=== PATIENT | male | born 1950 | race Caucasian/White ===

== ENCOUNTER 2017-09-20 05:04 | Emergency (ER) | payer MEDICARE, BC ==
[2017-09-20 05:13] VITALS: BP 156/86
[2017-09-20] MEDS ORDERED: DEXAMETHASONE 10 MG/ML VIAL PO STA (05:25)
[2017-09-20] MEDS ORDERED: KETOROLAC 60 MG/2 ML VIAL IM STA (05:25)
[2017-09-20] MEDS ORDERED: ACETAMINOPHEN 500 MG TABLET PO STA (05:25)
[2017-09-20] MEDS ORDERED: oxyCODONE/ACET 5/325 Prepack 4 PO STA (05:28)
[2017-09-20] MEDS ORDERED: diazePAM 5 MG TABLET PO STA (05:28)
--- NOTE | 2017-09-20 05:36 | ED Physician Documentation ---
PD HPI LOWER EXT INJURY - Stated complaint Stated Complaint: R LEG PX - Chief complaint Chief Complaint: Ext Problem - History obtained from History obtained from: Patient - History of Present Illness PD HPI LOW EXT INJURY LOCATION: Right, Upper leg, Buttock Where injury occurred: Home Timing - onset: How many days ago (3) Timing - details: Waxing and waning Improved by: Immobilization Worsened by: Moving, Palpating Associated symptoms: No: Weakness, Numbness, Tingling, Swelling Contributing factors: No: Anticoagulated, Prior ortho surgery Recently seen: Clinic - Additional information Additional information: Patient is a 67 year old male with a history of sciatica who is presenting to the emergency department for right leg pain. Patient states for the last couple of days he has had pain that radiates from his right buttock down his right leg. Patient denies any trauma, fever or chills. patient went to the walk in clinic and x-rays were performed and were within normal limits. Review of Systems Constitutional: denies: Fever, Chills Eyes: denies: Decreased vision, Photophobia Ears: denies: Ear pain, Drainage/discharge Nose: denies: Rhinorrhea / runny nose, Congestion Throat: reports: Reviewed and negative Cardiac: reports: Reviewed and negative Respiratory: reports: Reviewed and negative GI: reports: Reviewed and negative : denies: Dysuria, Frequency, Hesitancy, Hematuria Skin: reports: Rash. denies: Lesions, Abrasion (s) Musculoskeletal: reports: Extremity pain. denies: Back pain Neurologic: reports: Numbness. denies: Generalized weakness, Focal weakness Immunocompromised: denies: Immunocompromised PD PAST MEDICAL HISTORY - Past Medical History Past Medical History: Yes Cardiovascular: High cholesterol Respiratory: None Neuro: None Endocrine/Autoimmune: None GI: None : Benign prostate hypertrophy HEENT: None Psych: None Musculoskeletal: Other Derm: Eczema - Past Surgical History Past Surgical History: Yes General: Cholecystectomy HEENT: Detached retina repair, Tonsil/Adenoidectomy - Present Medications Home Medications: Ambulatory Orders Medication Instructions Recorded Confirmed Aspirin [Aspir 81] 81 mg PO DAILY 05/25/13 03/08/16 [place]-3 Fatty Acids/Fish Oil [Fish 1 each PO DAILY 05/25/13 03/08/16 Oil 1,000 mg Capsule] Pravastatin Sodium [Pravachol] 40 mg PO DAILY 05/25/13 03/08/16 Tamsulosin [Flomax] 0.4 mg PO DAILY 05/25/13 03/08/16 Oxycodone HCl/Acetaminophen 1 - 2 each PO Q6H PRN #7 tablet 09/20/17 [Percocet 5-325 mg Tablet] - Allergies Allergies/Adverse Reactions: Allergies Allergy/AdvReac Type Severity Reaction Status Date / Time No Known Drug Allergies Allergy Verified 09/20/17 05:13 - Social History Does the pt smoke?: No Smoking Status: Never smoker Does the pt drink ETOH?: Yes Does the pt have substance abuse?: No - Immunizations Immunizations are current?: Yes - POLST Patient has POLST: No PD ED PE NORMAL - Vitals Vital signs reviewed: Yes - General General: Alert and oriented X 3 - HEENT HEENT: Atraumatic - Cardiac Cardiac: RRR - Respiratory Respiratory: No respiratory distress - Abdomen Abdomen: Non distended - Neuro Neuro: No motor deficit, No sensory deficit, Normal speech Eye Opening: Spontaneous PD ED PE EXPANDED - General General: Alert, In Pain - Back Back: CVA TTP right - Derm Derm: Rash (chronic rash on upper extremities and back, patient reports as unchanged) Results - Vitals Vitals: Vital Signs - 24 hr 09/20/17 05:11 Temperature 36.6 C Heart Rate 75 Respiratory 20 Rate Blood Pressure 156/86 H O2 Saturation 99 Oxygen O2 Source Room air PD MEDICAL DECISION MAKING - ED course Complexity details: reviewed old records, reviewed results, re-evaluated patient , considered differential, d/w patient ED course: Patient was seen and examined at bedside. Patient was in moderate distress but the pain was likely secondary to his sciatic nerve. Patient was treated with toradol and decadron. Patient was given a prepack of percocet and a valium to go home with since he was driving. No further inpatient work up was necessary at this time and patient was stable for discharge with outpatient follow up. Departure - Departure Disposition: 01 Home, Self Care Clinical Impression: Sciatica Condition: Good Instructions: ED Sciatica Follow-Up: Fabián Colin MD [Primary Care Provider] - Within 3 Days Prescriptions: Oxycodone HCl/Acetaminophen [Percocet 5-325 mg Tablet] 1 - 2 each PO Q6H PRN #7 tablet PRN Reason: pain Comments: Your symptoms today are likely secondary to sciatica. You should alternate between ice and heat, motrin and tylenol. You can try percocet for breakthrough pain. You can continue with your home muscle relaxers. You should follow up with your doctor on friday if your symptoms don't improve. You may return to the emergency department at any time for new, worsening or uncontrollable symptoms.
[2017-09-20] MEDS ORDERED: KETOROLAC 30 MG/ML VIAL ONE (05:41)
[2017-09-20] MEDS ORDERED: CHERRY SYRUP 10 ML UDC PO ONE (05:41)
== END 2017-09-20 05:53 | disposition home or self-care (01) ==
LOC: ED 05:04
DX: M54.31 Sciatica, right side (principal); R21 Rash and other nonspecific skin eruption; Z79.82 Long term (current) use of aspirin
CPT/HCPCS: 96372; 99283; A9270

== ENCOUNTER 2017-10-01 05:19 | Outpatient (CLI) | payer MEDICARE, BC | END 2017-10-01 05:20 | disposition critical access hospital (66) | LOC: EMS 05:19 | PROVIDERS: ATTEND Surgery | DX: M54.30 Sciatica, unspecified side (principal) | CPT/HCPCS: A0425; A0429 ==

== ENCOUNTER 2017-10-01 05:42 | Emergency (ER) | payer MEDICARE, BC ==
[2017-10-01] MEDS ORDERED: HYDROmorphone 1 MG/ML CARPUJECT IM STA (05:45)
[2017-10-01] MEDS ORDERED: DEXAMETHASONE 10 MG/ML VIAL PO STA (05:45)
[2017-10-01] MEDS ORDERED: KETOROLAC 60 MG/2 ML VIAL IM STA (05:45)
[2017-10-01] MEDS ORDERED: diazePAM 5 MG TABLET PO STA (05:46)
--- NOTE | 2017-10-01 05:49 | ED Physician Documentation ---
PD HPI LOWER EXT INJURY - Stated complaint Stated Complaint: SCIATIC PAIN - Chief complaint Chief Complaint: Back Pain - History obtained from History obtained from: Patient, EMS - History of Present Illness PD HPI LOW EXT INJURY LOCATION: Right, Upper leg, Buttock Where injury occurred: Home Timing - onset: Chronic Timing - details: Intermittant Worsened by: Moving, Palpating Similar symptoms before: Work up / diagnostics, Treatment Recently seen: Emergency Dept - Additional information Additional information: Patient is a 67 year old male with a history of sciatica who is presenting to the emergency department for right leg pain. patient states that he had seen his chiropractor which had given him some relief but his pain came back over the last few days. patient states that he did not want to take the percocet since he had been constipated. Patient has been under a lot of stress since his is in hospice. Patient denies any new trauma, fever, chills or neurological deficits. Review of Systems Ten Systems: 10 systems reviewed and negative Constitutional: denies: Fever, Chills Musculoskeletal: reports: Extremity pain. denies: Extremity swelling Neurologic: denies: Generalized weakness, Focal weakness, Numbness PD PAST MEDICAL HISTORY - Past Medical History Cardiovascular: High cholesterol Respiratory: None Neuro: None Endocrine/Autoimmune: None GI: None : Benign prostate hypertrophy HEENT: None Psych: None Musculoskeletal: Other Derm: Eczema - Past Surgical History Past Surgical History: Yes General: Cholecystectomy HEENT: Detached retina repair, Tonsil/Adenoidectomy - Present Medications Home Medications: Ambulatory Orders Medication Instructions Recorded Confirmed Aspirin [Aspir 81] 81 mg PO DAILY 05/25/13 03/08/16 [place]-3 Fatty Acids/Fish Oil [Fish 1 each PO DAILY 05/25/13 03/08/16 Oil 1,000 mg Capsule] Pravastatin Sodium [Pravachol] 40 mg PO DAILY 05/25/13 03/08/16 Tamsulosin [Flomax] 0.4 mg PO DAILY 05/25/13 03/08/16 Oxycodone HCl/Acetaminophen 1 - 2 each PO Q6H PRN #7 tablet 09/20/17 [Percocet 5-325 mg Tablet] Lidocaine Patch 5% [Lidoderm Patch] 1 each TOP DAILY #20 patch 10/01/17 diazePAM [Valium] 5 - 10 mg PO TID PRN #15 tablet 10/01/17 - Allergies Allergies/Adverse Reactions: Allergies Allergy/AdvReac Type Severity Reaction Status Date / Time No Known Drug Allergies Allergy Verified 09/20/17 05:13 - Social History Does the pt smoke?: No Smoking Status: Never smoker Does the pt drink ETOH?: Yes Does the pt have substance abuse?: No - Immunizations Immunizations are current?: Yes - POLST Patient has POLST: No PD ED PE NORMAL - Vitals Vital signs reviewed: Yes - General General: Alert and oriented X 3 - HEENT HEENT: Atraumatic - Cardiac Cardiac: RRR - Respiratory Respiratory: No respiratory distress - Abdomen Abdomen: Soft - Neuro Neuro: Alert and oriented X 3, No sensory deficit Eye Opening: Spontaneous Motor: Obeys Commands Verbal: Oriented GCS Score: 15 PD ED PE EXPANDED - General General: Alert, In Pain - Derm Derm: Rash - Extremities Extremities: Right hip (soft tissue tenderness over right gluteal region down right leg), Right thigh Results - Vitals Vitals: Vital Signs - 24 hr 10/01/17 05:46 Temperature 36.5 C Heart Rate 73 Respiratory 20 Rate Blood Pressure 158/61 H O2 Saturation 96 Oxygen O2 Source Room air PD MEDICAL DECISION MAKING - ED course Complexity details: reviewed old records, reviewed results, re-evaluated patient , considered differential, d/w patient ED course: Patient was seen and examined at bedside. Patient was treated with toradol, decadron and IM dilaudid. Patient's pain improved down to a 5. Patient was then treated with a trigger point injection and a lidoderm patch. Patient had even more relief and was able to tolerate his stretches. patient had no neurological deficit. Patient required no further work up and was stable for discharge with outpatient follow up. Departure - Departure Disposition: 01 Home, Self Care Clinical Impression: Sciatica Condition: Good Instructions: ED Sciatica Follow-Up: Fabián Colin MD [Primary Care Provider] - Prescriptions: diazePAM [Valium] 5 - 10 mg PO TID PRN #15 tablet PRN Reason: Spasms Lidocaine Patch 5% [Lidoderm Patch] 1 each TOP DAILY #20 patch Comments: Your symptoms today are secondary to sciatica. Your mainstay of therapy will be anti-inflammatory medicine (ibuprofen), and stretching/physical therapy. You can also try valium for muscle spasm and lidoderm patch for point specific pain. You should continue with the stretches that your chiropractor had you do and follow up with your physical therapist. You may return to the emergency department at any time for new, worsening or uncontrollable symptoms.
[2017-10-01] MEDS ORDERED: CHERRY SYRUP 10 ML UDC PO ONE (06:03)
[2017-10-01] MEDS ORDERED: BUPIVACAINE 0.5% PF 30 ML VIAL SUBQ STA (06:45)
[2017-10-01] MEDS ORDERED: LIDOCAINE PATCH 5% TOP STA (06:45)
[2017-10-01] MEDS ORDERED: LIDOCAINE 2% 10 ML MDV SUBQ STA (06:58)
[2017-10-01] MEDS ORDERED: LIDOCAINE 2% 10 ML MDV ONE ×2 (06:58)
[2017-10-01 08:00] VITALS: BP 160/87
== END 2017-10-01 08:42 | disposition home or self-care (01) ==
LOC: EDUNIT# → ED 05:42
DX: M54.31 Sciatica, right side (principal); M79.1 Myalgia
CPT/HCPCS: 20552; 96372; 99283; 99284; A9270; J1170

== ENCOUNTER 2018-03-15 18:46 | Outpatient (CLI) | payer MEDICARE, BC | END 2018-03-15 18:47 | disposition critical access hospital (66) | LOC: EMS 18:46 | PROVIDERS: ATTEND Surgery | DX: R10.9 Unspecified abdominal pain (principal); R11.0 Nausea | CPT/HCPCS: A0425; A0427 ==

== ENCOUNTER 2018-03-15 19:10 | Emergency (ER) | payer MEDICARE, BC ==
[2018-03-15] MEDS ORDERED: LORazepam 2 MG/ML VIAL IVP STA (19:41)
[2018-03-15 19:45] LABS: BASOPHILS # (AUTO) 0.1 10^3/uL (0.0-0.1); BASOPHILS % (AUTO) 1.5 %; EOSINOPHILS # (AUTO) 0.2 10^3/uL (0.0-0.7); EOSINOPHILS % (AUTO) 1.7 %; HGB - HEMOGLOBIN 16.3 g/dL (14.0-18.0); LYMPHOCYTES # (AUTO) 2.4 10^3/uL (1.5-3.5); LYMPHOCYTES % (AUTO) 26.4 %; MEAN CORPUSCULAR HEMOGLOBIN 29.1 pg (27.0-31.0); MEAN CORPUSCULAR HGB CONC 33.9 g/dL (32.0-36.0); MEAN PLATELET VOLUME 7.3 fL (7.4-11.4); MONOCYTES # (AUTO) 0.7 10^3/uL (0.0-1.0); MONOCYTES % (AUTO) 7.3 %; NEUTROPHILS # (AUTO) 5.7 10^3/uL (1.5-6.6); NEUTROPHILS % (AUTO) 63.1 %; PLT - PLATELET COUNT 285 10^3/uL (130-450); RED BLOOD COUNT 5.61 10^6/uL (4.70-6.10); RED CELL DISTRIBUTION WIDTH 13.8 % (12.0-15.0); WHITE BLOOD COUNT 9.1 x10^3/uL (4.8-10.8)
--- NOTE | 2018-03-15 19:46 | ED Physician Documentation ---
PD HPI ABD PAIN - Stated complaint Stated Complaint: ABD PAIN - Chief complaint Chief Complaint: Abd Pain - History obtained from History obtained from: Patient, EMS - History of Present Illness Timing - onset: How many days ago (3) Timing - duration: Days (3) Timing - details: Gradual onset Pain level max: 10 Pain level now: 10 Quality: Cramping, Aching, Pain Location: All over / everywhere Associated symptoms: No: Fever, Nausea, Vomiting, Diarrhea, Constipation Similar symptoms before: Has not had sx before Recently seen: Not recently seen - Additional information Additional information: Patient is a 67 year old male who presents to the emergency room with severe abdominal pain. States this has been going on for the past 3 days but has increasingly gotten worse in the past hour. States he recently lost his 3 months ago and he had pain in his stomach that was very similar to this. States it feels very tight and he is very worked up. Pt is tearful while giving the history. Review of Systems Ten Systems: 10 systems reviewed and negative Constitutional: denies: Fever, Chills Nose: denies: Rhinorrhea / runny nose Throat: denies: Sore throat GI: reports: Nausea, Vomiting. denies: Abdominal Pain, Constipation, Diarrhea Skin: denies: Rash Musculoskeletal: denies: Neck pain, Back pain, Extremity pain Psychiatric: reports: Anxiety. denies: Suicidal PD PAST MEDICAL HISTORY - Past Medical History Past Medical History: Yes Cardiovascular: High cholesterol Respiratory: None Endocrine/Autoimmune: None GI: None : Benign prostate hypertrophy HEENT: None Psych: None Musculoskeletal: Other Derm: Eczema - Past Surgical History Past Surgical History: Yes General: Cholecystectomy HEENT: Detached retina repair, Tonsil/Adenoidectomy - Present Medications Home Medications: Ambulatory Orders Medication Instructions Recorded Confirmed Aspirin [Aspir 81] 81 mg PO DAILY 05/25/13 03/08/16 [place]-3 Fatty Acids/Fish Oil [Fish 1 each PO DAILY 05/25/13 03/08/16 Oil 1,000 mg Capsule] Pravastatin Sodium [Pravachol] 40 mg PO DAILY 05/25/13 03/08/16 Tamsulosin [Flomax] 0.4 mg PO DAILY 05/25/13 03/08/16 Oxycodone HCl/Acetaminophen 1 - 2 each PO Q6H PRN #7 tablet 09/20/17 [Percocet 5-325 mg Tablet] Lidocaine Patch 5% [Lidoderm Patch] 1 each TOP DAILY #20 patch 10/01/17 diazePAM [Valium] 5 - 10 mg PO TID PRN #15 tablet 10/01/17 LORazepam [Ativan] 0.5 - 1 mg PO Q6H PRN #10 tablet 03/15/18 - Allergies Allergies/Adverse Reactions: Allergies Allergy/AdvReac Type Severity Reaction Status Date / Time No Known Drug Allergies Allergy Verified 09/20/17 05:13 - Living Situation Living Arrangement: reports: At home - Social History Does the pt smoke?: No Smoking Status: Never smoker Does the pt drink ETOH?: Yes Does the pt have substance abuse?: No - Family History Family history: reports: Non contributory - Immunizations Immunizations are current?: Yes - POLST Patient has POLST: No PD ED PE NORMAL - Vitals Vital signs reviewed: Yes - General General: Alert and oriented X 3, Well developed/nourished - HEENT HEENT: Atraumatic, PERRL, Moist mucous membranes - Neck Neck: Supple, no meningeal sign - Cardiac Cardiac: RRR - Respiratory Respiratory: No respiratory distress, Clear bilaterally - Abdomen Abdomen: Soft, Other (Diffusely tender all over. no peritoneal signs) - Derm Derm: Warm and dry, No rash - Extremities Extremities: No edema, No calf tenderness / cord - Neuro Neuro: Alert and oriented X 3 - Psych Psych: Other (Pt appears very distressed and tearful) Results - Vitals Vitals: Vital Signs - 24 hr 03/15/18 03/15/18 03/15/18 19:13 20:00 21:02 Temperature 36.1 C L 36.6 C 36.6 C Heart Rate 79 57 L 67 Respiratory 16 16 14 Rate Blood Pressure 203/108 H 145/77 H 146/79 H O2 Saturation 97 96 97 Oxygen O2 Source Room air - Labs Labs: Laboratory Tests 03/15/18 03/15/18 19:36 19:36 WBC 9.1 RBC 5.61 Hgb 16.3 Hct 48.3 MCV 86.0 MCH 29.1 MCHC 33.9 RDW 13.8 Plt Count 285 MPV 7.3 L Neut # (Auto) 5.7 Lymph # (Auto) 2.4 [place] # (Auto) 0.7 Eos # (Auto) 0.2 Baso # (Auto) 0.1 Absolute Nucleated RBC 0.00 Nucleated RBC % 0.0 Sodium 135 Potassium 3.7 Chloride 105 Carbon Dioxide 22 Anion Gap 8.0 BUN 16 Creatinine 0.8 Estimated GFR (MDRD) 96 Glucose 106 H Calcium 9.9 Total Bilirubin 0.7 AST 24 ALT 25 Alkaline Phosphatase 62 Total Protein 7.2 Albumin 4.1 Globulin 3.1 Albumin/Globulin Ratio 1.3 Lipase 27 PD MEDICAL DECISION MAKING - ED course Complexity details: reviewed results, re-evaluated patient, considered diff erential, d/w patient ED course: Patient is a 67-year-old male who presents to the emergency department with diffuse abdominal pain. Appears to be anxiety related. Given Ativan and symptoms resolved. No acute laboratory findings. Will prescribe Ativan for home and follow-up closely with his PCP. Abdomen soft, nontender nondistended on serial exam. He is seeing a grief counselor. Patient counseled regarding signs and symptoms for which I believe and urgent re-evaluation would be necessary. Patient with good understanding of and agreement to plan and is comfortable going home at this time This document was made in part using voice recognition software. While efforts are made to proofread this document, sound alike and grammatical errors may occur. - Sepsis Event Vital Signs: Vital Signs - 24 hr 03/15/18 03/15/18 03/15/18 19:13 20:00 21:02 Temperature 36.1 C L 36.6 C 36.6 C Heart Rate 79 57 L 67 Respiratory 16 16 14 Rate Blood Pressure 203/108 H 145/77 H 146/79 H O2 Saturation 97 96 97 Oxygen O2 Source Room air Departure - Departure Disposition: 01 Home, Self Care Clinical Impression: Anxiety Abdominal pain Qualifiers: Abdominal location: generalized Qualified Code(s): R10.84 - Generalized abdominal pain Condition: Good Instructions: ED Abdominal Pain Unkn Cause, ED Panic Attack Follow-Up: Fabián Colin MD [Primary Care Provider] - Within 1 week Prescriptions: LORazepam [Ativan] 0.5 - 1 mg PO Q6H PRN #10 tablet PRN Reason: Anxiety Comments: Use the Ativan as needed for anxiety. Return if you worsen. Follow-up with your doctor for further evaluation and care. Your laboratory testing is normal tonight Discharge Date/Time: 03/15/18 21:09
[2018-03-15 19:54] LABS: ALBUMIN 4.1 g/dL (3.2-5.5); ALBUMIN/GLOBULIN RATIO 1.3 (1.0-2.2); BILIRUBIN,TOTAL 0.7 mg/dL (0.2-1.0); CALCIUM 9.9 mg/dL (8.5-10.3); CREATININE 0.8 mg/dL (0.6-1.2); TOTAL PROTEIN 7.2 g/dL (6.7-8.2)
[2018-03-15 21:04] VITALS: BP 146/79
== END 2018-03-15 21:09 | disposition home or self-care (01) ==
LOC: EDUNIT# → ED 19:10
DX: F41.9 Anxiety disorder, unspecified (principal); R10.84 Generalized abdominal pain
CPT/HCPCS: 36415; 80053; 83690; 85025; 96374; 99283; J2060

== ENCOUNTER 2018-11-07 05:57 | Emergency (ER) | payer MEDICARE, BC ==
[2018-11-07 06:03] VITALS: BP 153/81
--- NOTE | 2018-11-07 06:25 | ED Physician Documentation ---
History of Present Illness - Stated complaint Stated Complaint: R FOOT PX - Chief complaint Chief Complaint: Ext Problem - History obtained from History obtained from: Patient - History of Present Illness Timing: Enter time (02:30), Today Pain level now: 7 Improved by: rest, dorsiflexion Worsened by: weight-bearing, position, palpation - Additonal information Additional information: c/o burning pain right foot, limited to proximal 1st metatarsal. Onset 2:30 AM when walking to bathroom at home. denies injury. He says he has had similar, milder, self-limited discomfort in the past but never this severe nor persistent. Review of Systems Constitutional: denies: Fever Skin: denies: Rash Musculoskeletal: reports: Extremity pain, Pain with weight bearing. denies: Back pain, Joint pain, Extremity swelling, Joint swelling Neurologic: denies: Focal weakness, Numbness PD PAST MEDICAL HISTORY - Past Medical History Cardiovascular: High cholesterol Respiratory: None Endocrine/Autoimmune: None GI: None : Benign prostate hypertrophy HEENT: None Psych: None Musculoskeletal: Other Derm: Eczema - Past Surgical History Past Surgical History: Yes General: Cholecystectomy HEENT: Detached retina repair, Tonsil/Adenoidectomy - Present Medications Home Medications: Ambulatory Orders Medication Instructions Recorded Confirmed Aspirin [Aspir 81] 81 mg PO DAILY 05/25/13 11/07/18 [place]-3 Fatty Acids/Fish Oil [Fish 1 each PO DAILY 05/25/13 03/08/16 Oil 1,000 mg Capsule] Pravastatin Sodium [Pravachol] 40 mg PO DAILY 05/25/13 11/07/18 Tamsulosin [Flomax] 0.4 mg PO DAILY 05/25/13 11/07/18 HYDROcod/ACETAM 5/325 [[place] 5/325] 1 - 2 ea PO Q6H PRN #15 tablet 11/07/18 - Allergies Allergies/Adverse Reactions: Allergies Allergy/AdvReac Type Severity Reaction Status Date / Time No Known Drug Allergies Allergy Verified 09/20/17 05:13 - Social History Does the pt smoke?: No Smoking Status: Never smoker Does the pt drink ETOH?: Yes Does the pt have substance abuse?: No - Immunizations Immunizations are current?: Yes - POLST Patient has POLST: No PD ED PE NORMAL - Vitals Vital signs reviewed: Yes - General General: Alert and oriented X 3, No acute distress, Well developed/nourished - Derm Derm: Normal color, Warm and dry, No rash - Extremities Extremities: No deformity, Normal ROM s pain, No edema, No calf tenderness / cord - Neuro Neuro: No motor deficit, No sensory deficit PD ED PE EXPANDED - Extremities Feet visual: 1 - tenderness (TTP limited to proximal 1st metatarsal, lateral aspect. no erythema, swelling, rash. brisk capillary refill in toes, normal DP pulse. no joint tenderness (ankle, 1st MTP joint)) Results - Vitals Vitals: Vital Signs - 24 hr 11/07/18 05:59 Temperature 36.7 C Heart Rate 70 Respiratory 18 Rate Blood Pressure 153/81 H O2 Saturation 98 Oxygen O2 Source Room air PD MEDICAL DECISION MAKING - ED course Complexity details: considered differential, d/w patient ED course: HPI and exam do not suggest emergent process such as cellulitis, gout, injury, DVT, limb ischemia. Emergent testing not indicated at this time, but patient encouraged to return if worse or new signs/symptoms develop, f/u with PMD, and given ibuprofen in ED and vicodin rx with take-home for symptomatic control Departure - Departure Disposition: 01 Home, Self Care Clinical Impression: Pain of lower extremity Condition: Good Instructions: ED Paraesthesias Follow-Up: Fabián Colin MD [Primary Care Provider] - Prescriptions: HYDROcod/ACETAM 5/325 [[place] 5/325] 1 - 2 ea PO Q6H PRN #15 tablet PRN Reason: Pain Discharge Date/Time: 11/07/18 07:10
[2018-11-07] MEDS ORDERED: IBUPROFEN 600 MG TABLET PO STA (06:47)
[2018-11-07] MEDS ORDERED: HYDROcod/ACET 5/325 Prepack 4 PO STA (06:47)
== END 2018-11-07 07:10 | disposition home or self-care (01) ==
LOC: ED 05:57
DX: M79.671 Pain in right foot (principal); Z79.82 Long term (current) use of aspirin
CPT/HCPCS: 99283; A9270

== ENCOUNTER 2019-01-06 08:00 | Outpatient (CLI) | payer MEDICARE, BC ==
[2019-01-06 18:39] LABS: BASOPHILS # (AUTO) 0.1 10^3/uL (0.0-0.1); BASOPHILS % (AUTO) 0.7 %; EOSINOPHILS # (AUTO) 0.2 10^3/uL (0.0-0.7); EOSINOPHILS % (AUTO) 2.2 %; HGB - HEMOGLOBIN 15.8 g/dL (14.0-18.0); LYMPHOCYTES # (AUTO) 2.2 10^3/uL (1.5-3.5); LYMPHOCYTES % (AUTO) 31.9 %; MEAN CORPUSCULAR HEMOGLOBIN 28.6 pg (27.0-31.0); MEAN CORPUSCULAR VOLUME 92.4 fL (80.0-94.0); MEAN PLATELET VOLUME 9.5 fL (7.4-11.4); MONOCYTES # (AUTO) 0.6 10^3/uL (0.0-1.0); MONOCYTES % (AUTO) 9.3 %; NEUTROPHILS # (AUTO) 3.8 10^3/uL (1.5-6.6); NEUTROPHILS % (AUTO) 55.5 %; PLT - PLATELET COUNT 296 10^3/uL (130-450); RED BLOOD COUNT 5.52 10^6/uL (4.70-6.10); RED CELL DISTRIBUTION WIDTH 13.8 % (12.0-15.0); WHITE BLOOD COUNT 6.8 x10^3/uL (4.8-10.8)
[2019-01-06 18:49] LABS: HB2 TOTAL 16.4 g/dL; HEMOGLOBIN A1C 0.7 g/dL; HEMOGLOBIN A1C % 6.1 % (4.6-6.2)
[2019-01-06 18:59] LABS: ALBUMIN/GLOBULIN RATIO 1.3 (1.0-2.2); ALKALINE PHOSPHATASE 63 IU/L (42-121); ALT ALANINE AMINOTRANSFERASE 27 IU/L (10-60); AST ASPARTATE AMINOTRANSFERASE 25 IU/L (10-42); BILIRUBIN,TOTAL 0.9 mg/dL (0.2-1.0); BUN - BLOOD UREA NITROGEN 20 mg/dL (6-20); CALCIUM 8.9 mg/dL (8.5-10.3); CARBON DIOXIDE - CO2 23 mmol/L (21-32); CHLORIDE 109 mmol/L (101-111); CHOL/HDL RATIO 3.5 (<5.0); CHOLESTEROL 160 mg/dL; CREATININE 0.8 mg/dL (0.6-1.2); GFR - MDRD 96 (>89); GLUCOSE 96 mg/dL (70-100); HDL CHOLESTEROL 46 mg/dL; LDL CHOLESTEROL,CALCULATED 96 mg/dL; LDL/HDL RATIO 2.1 (<3.6); SODIUM 141 mmol/L (135-145); TOTAL PROTEIN 7.2 g/dL (6.7-8.2); VLDL CHOLESTEROL 18 mg/dL
== END 2019-01-06 23:59 | disposition home or self-care (01) ==
LOC: LAB.WCP 08:00
PROVIDERS: ATTEND Family Medicine
DX: R73.01 Impaired fasting glucose (principal); E78.5 Hyperlipidemia, unspecified; Z12.5 Encounter for screening for malignant neoplasm of prostate; R03.0 Elevated blood-pressure reading, without diagnosis of hypertension
CPT/HCPCS: 36415; 80061; 83036; G0103; 80053; 83721; 84153; 84443; 85025

== ENCOUNTER 2019-04-05 12:16 | Emergency (ER) | payer MEDICARE, BC ==
[2019-04-05] MEDS ORDERED: LORazepam 2 MG/ML VIAL IVP STA (14:26)
--- NOTE | 2019-04-05 14:26 | ED Physician Documentation ---
PD HPI MHE - Stated complaint Stated Complaint: ANXIETY - Chief complaint Chief Complaint: MHE - History obtained from History obtained from: Patient - History of Present Illness Primary symptom: Anxiety. No: Suicidal ideation, Suicide attempt, Self harm - cut, Self harm - OD, Self harm - other, Homicidal ideation, Psychosis, Aggressive behavior Timing - onset: How many years ago (1.5) Contributing factors: No: Substance abuse - ETOH, Substance abuse - drugs Similar symptoms before: Diagnosis Recently seen: Clinic - Additional information Additional information: Is a 68-year-old man who presents with complaints of "major stress and anxiety. His about a year and a half ago and since then he has been having issues with anxiety. They were very close and with each other's support. He was with her through her cancer. He is still seeing the bereavement counselor through the hospice program every third week but he did not go 2 weeks ago just because he was feeling and started to feel anxious. He says when he gets really worked up his stomach tightens he feels like he is just in a screen. He went to his primary care provider put him on sertraline but it made him nauseous so he quit taking it after only 2 days. He does not have any appetite. He was also been prescribed lorazepam and when he takes it he does feel a little bit calmer however he is waking up in the morning with his intense stomach pain. If he takes a lorazepam it eases off. He has had diarrhea and has noted a small speck of blood on the tissue. This is been a problem in the past and he has had some hemorrhoids. He has had a colonoscopy but he cannot remember when the last one was. He is nauseous but no vomiting. Denies any dysuria or blood in the urine. He has no pain radiating down his legs or in his back. He does feel like he has heart palpitations off and on but is not short of breath and his head is just "swirling". Is a history of prostate cancer with radiation seeds placed in 2009 and is status post cholecystectomy. Denies history of MS. He has chronic eczema. Review of Systems Constitutional: denies: Fever Ears: denies: Ear pain Nose: denies: Congestion Throat: denies: Sore throat Cardiac: reports: Palpitations. denies: Chest pain / pressure, Pedal edema Respiratory: denies: Dyspnea, Cough GI: reports: Abdominal Pain, Nausea, Diarrhea. denies: Vomiting : reports: Frequency. denies: Dysuria Skin: reports: Rash Musculoskeletal: denies: Back pain Neurologic: denies: Numbness, Syncope PD PAST MEDICAL HISTORY - Past Medical History Past Medical History: Yes Cardiovascular: High cholesterol Respiratory: None Neuro: None Endocrine/Autoimmune: None GI: None : Benign prostate hypertrophy HEENT: None Psych: Depression, Anxiety Musculoskeletal: Other Derm: Eczema - Past Surgical History Past Surgical History: Yes General: Cholecystectomy HEENT: Detached retina repair, Tonsil/Adenoidectomy - Present Medications Home Medications: Ambulatory Orders Medication Instructions Recorded Confirmed Aspirin [Aspir 81] 81 mg PO DAILY 05/25/13 11/07/18 [place]-3 Fatty Acids/Fish Oil [Fish 1 each PO DAILY 05/25/13 03/08/16 Oil 1,000 mg Capsule] Pravastatin Sodium [Pravachol] 40 mg PO DAILY 05/25/13 11/07/18 Tamsulosin [Flomax] 0.4 mg PO DAILY 05/25/13 11/07/18 HYDROcod/ACETAM 5/325 [[place] 5/325] 1 - 2 ea PO Q6H PRN #15 tablet 11/07/18 - Allergies Allergies/Adverse Reactions: Allergies Allergy/AdvReac Type Severity Reaction Status Date / Time No Known Drug Allergies Allergy Verified 04/05/19 12:36 - Social History Does the pt smoke?: No Smoking Status: Never smoker Does the pt drink ETOH?: Yes Does the pt have substance abuse?: No - Immunizations Immunizations are current?: Yes - POLST Patient has POLST: No PD ED PE NORMAL - Vitals Vital signs reviewed: Yes - General General: Alert and oriented X 3, Well developed/nourished, Other (He is quite anxious sometimes reach up and clutch at his hair and occasionally just departure clerk his hands into fists just shake them over his abdomen.) - HEENT HEENT: Atraumatic, PERRL, EOMI, Moist mucous membranes, Pharynx benign - Neck Neck: No adenopathy, Thyroid normal - Cardiac Cardiac: RRR, No murmur, No rub, Strong equal pulses - Respiratory Respiratory: No respiratory distress, Clear bilaterally - Abdomen Abdomen: Normal bowel sounds, Soft, Non tender, Non distended, No organomegaly - Derm Derm: Normal color, Warm and dry, Other (Diffuse erythematous dry patches covering his trunk arms and legs) - Extremities Extremities: No deformity, No edema - Neuro Neuro: Alert and oriented X 3, functional mental disability teacher 2-12 intact, No motor deficit, No sensory deficit, Normal speech Results - Vitals Vitals: Vital Signs - 24 hr 04/05/19 04/05/19 12:20 18:38 Temperature 36.9 C Heart Rate 73 76 Respiratory 18 13 Rate Blood Pressure 163/104 H 126/95 H O2 Saturation 98 97 Oxygen O2 Source Room air - Labs Labs: Laboratory Tests 04/05/19 04/05/19 04/05/19 14:35 14:35 14:35 WBC 9.6 RBC 5.73 Hgb 16.6 Hct 50.8 MCV 88.7 MCH 29.0 MCHC 32.7 RDW 13.7 Plt Count 283 MPV 9.1 Neut # (Auto) 6.7 H Lymph # (Auto) 2.1 [place] # (Auto) 0.7 Eos # (Auto) 0.1 Baso # (Auto) 0.0 Absolute Nucleated RBC 0.00 Nucleated RBC % 0.0 Sodium 138 Potassium 3.7 Chloride 104 Carbon Dioxide 22 Anion Gap 12.0 BUN 19 Creatinine 1.0 Estimated GFR (MDRD) 74 L Glucose 106 H Calcium 9.5 Phosphorus 2.7 Magnesium 2.1 Total Bilirubin 0.9 AST 19 ALT 23 Alkaline Phosphatase 67 Total Protein 7.0 Albumin 3.9 Globulin 3.1 Albumin/Globulin Ratio 1.3 Lipase 29 TSH 3.29 Urine Color Urine Clarity Urine pH Ur Specific [place] Urine Protein Urine Glucose (UA) Urine Ketones Urine Occult Blood Urine Nitrite Urine Bilirubin Urine Urobilinogen Ur Leukocyte Esterase Ur Microscopic Review Urine Culture Comments Urine Opiates Screen Ur Oxycodone Screen Urine Methadone Screen Ur Propoxyphene Screen Ur Barbiturates Screen Ur Tricyclics Screen Ur Phencyclidine Scrn Ur Amphetamine Screen U Methamphetamines Scrn U Benzodiazepines Scrn Urine Cocaine Screen U Cannabinoids Screen Ethyl Alcohol < 5.0 04/05/19 14:40 WBC RBC Hgb Hct MCV MCH MCHC RDW Plt Count MPV Neut # (Auto) Lymph # (Auto) [place] # (Auto) Eos # (Auto) Baso # (Auto) Absolute Nucleated RBC Nucleated RBC % Sodium Potassium Chloride Carbon Dioxide Anion Gap BUN Creatinine Estimated GFR (MDRD) Glucose Calcium Phosphorus Magnesium Total Bilirubin AST ALT Alkaline Phosphatase Total Protein Albumin Globulin Albumin/Globulin Ratio Lipase TSH Urine Color YELLOW Urine Clarity CLEAR Urine pH 8.5 H Ur Specific [place] 1.010 Urine Protein NEGATIVE Urine Glucose (UA) NEGATIVE Urine Ketones NEGATIVE Urine Occult Blood NEGATIVE Urine Nitrite NEGATIVE Urine Bilirubin NEGATIVE Urine Urobilinogen 0.2 (NORMAL) Ur Leukocyte Esterase NEGATIVE Ur Microscopic Review NOT INDICATED Urine Culture Comments NOT INDICATED Urine Opiates Screen NEGATIVE Ur Oxycodone Screen NEGATIVE Urine Methadone Screen NEGATIVE Ur Propoxyphene Screen NEGATIVE Ur Barbiturates Screen NEGATIVE Ur Tricyclics Screen NEGATIVE Ur Phencyclidine Scrn NEGATIVE Ur Amphetamine Screen NEGATIVE U Methamphetamines Scrn NEGATIVE U Benzodiazepines Scrn POSITIVE H Urine Cocaine Screen NEGATIVE U Cannabinoids Screen NEGATIVE Ethyl Alcohol PD MEDICAL DECISION MAKING - ED course Complexity details: reviewed results, re-evaluated patient, d/w patient ED course: Patient's labs were normal and he was feeling better after 1 mg of Ativan. In fact, he says he was able to breathe himself down before he even got the Ativan. We discussed counselling and he was open to more counselling than just the bereavement counselling and he spent some time talking with our Machine Heel Sprayer and they have outlined a plan. he feels comfortable with discharge. Follow-up with PMd for further medication management as needed. Departure - Departure Disposition: 01 Home, Self Care Clinical Impression: Anxiety attack Condition: Good Instructions: ED Stress React Follow-Up: Fabián Colin MD [Primary Care Provider] - Comments: Continue your breathing exercises. Follow-up with your counsellor and further plan as outlined with the social media job titles. Discharge Date/Time: 04/05/19 18:48
[2019-04-05 14:43] LABS: BASOPHILS % (AUTO) 0.4 %; EOSINOPHILS # (AUTO) 0.1 10^3/uL (0.0-0.7); EOSINOPHILS % (AUTO) 0.7 %; HGB - HEMOGLOBIN 16.6 g/dL (14.0-18.0); LYMPHOCYTES # (AUTO) 2.1 10^3/uL (1.5-3.5); LYMPHOCYTES % (AUTO) 21.7 %; MEAN CORPUSCULAR HGB CONC 32.7 g/dL (32.0-36.0); MEAN CORPUSCULAR VOLUME 88.7 fL (80.0-94.0); MEAN PLATELET VOLUME 9.1 fL (7.4-11.4); MONOCYTES # (AUTO) 0.7 10^3/uL (0.0-1.0); MONOCYTES % (AUTO) 7.6 %; NEUTROPHILS # (AUTO) 6.7 10^3/uL (1.5-6.6); PLT - PLATELET COUNT 283 10^3/uL (130-450); RED BLOOD COUNT 5.73 10^6/uL (4.70-6.10); RED CELL DISTRIBUTION WIDTH 13.7 % (12.0-15.0); WHITE BLOOD COUNT 9.6 x10^3/uL (4.8-10.8)
[2019-04-05 14:45] LABS: MUDS CUTOFF CONCENTRATIONS CUTOFF CONC BELOW:
[2019-04-05 14:50] LABS: BILIRUBIN,URINE NEGATIVE (NEGATIVE); GLUCOSE, URINE (UA) NEGATIVE (NEGATIVE); KETONES,URINE (UA) NEGATIVE (NEGATIVE); LEUKOCYTE ESTERASE, URINE NEGATIVE (NEGATIVE); NITRITE,URINE NEGATIVE (NEGATIVE); OCCULT BLOOD,URINE NEGATIVE (NEGATIVE); PH,URINE 8.5 PH (5.0-7.5); PROTEIN,URINE NEGATIVE (NEGATIVE); UROBILINOGEN,URINE 0.2 (NORMAL) E.U./dL (NORMAL)
[2019-04-05 14:51] LABS: CLARITY,URINE CLEAR (CLEAR)
[2019-04-05 14:59] LABS: ALBUMIN 3.9 g/dL (3.2-5.5); ALBUMIN/GLOBULIN RATIO 1.3 (1.0-2.2); ALKALINE PHOSPHATASE 67 IU/L (42-121); ALT ALANINE AMINOTRANSFERASE 23 IU/L (10-60); AST ASPARTATE AMINOTRANSFERASE 19 IU/L (10-42); BILIRUBIN,TOTAL 0.9 mg/dL (0.2-1.0); BUN - BLOOD UREA NITROGEN 19 mg/dL (6-20); CALCIUM 9.5 mg/dL (8.5-10.3); CARBON DIOXIDE - CO2 22 mmol/L (21-32); CHLORIDE 104 mmol/L (101-111); GFR - MDRD 74 (>89); GLUCOSE 106 mg/dL (70-100); LIPASE 29 U/L (22-51); MAGNESIUM 2.1 mg/dL (1.7-2.8); PHOSPHORUS 2.7 mg/dL (2.5-4.6); SODIUM 138 mmol/L (135-145)
[2019-04-05 15:01] LABS: AMPHETAMINE SCREEN,URINE NEGATIVE (NEGATIVE); BENZODIAZEPINES SCREEN, URINE POSITIVE (NEGATIVE); COCAINE SCREEN URINE NEGATIVE (NEGATIVE); METHADONE SCREEN, URINE NEGATIVE (NEGATIVE); METHAMPHETAMINES SCREEN, URINE NEGATIVE (NEGATIVE); OPIATE SCREEN, URINE NEGATIVE (NEGATIVE); OXYCODONE SCREEN, URINE NEGATIVE (NEGATIVE); PROPOXYPHENE SCREEN, URINE NEGATIVE (NEGATIVE); TRICYCLIC ANTIDEPRESSANT,URINE NEGATIVE (NEGATIVE)
[2019-04-05 18:38] VITALS: BP 126/95
== END 2019-04-05 18:48 | disposition home or self-care (01) ==
LOC: ED 12:16
DX: F41.9 Anxiety disorder, unspecified (principal); L30.9 Dermatitis, unspecified; Z85.46 Personal history of malignant neoplasm of prostate; Z79.82 Long term (current) use of aspirin
CPT/HCPCS: 36415; 81003; 83690; 83735; 84100; 99283; J2060; 80053; 80306; 80320; 81001; 84443; 85025; 87086

== ENCOUNTER 2019-04-07 15:48 | Outpatient (CLI) | payer MEDICARE, BC | END 2019-04-07 15:49 | disposition EMS.NT | LOC: EMS 15:48 | PROVIDERS: ATTEND Surgery | DX: F41.9 Anxiety disorder, unspecified (principal) ==

== ENCOUNTER 2019-04-07 16:31 | Emergency (ER) | payer MEDICARE, BC ==
--- NOTE | 2019-04-07 16:58 | ED Physician Documentation ---
PD HPI MHE - Stated complaint Stated Complaint: ANXIETY - Chief complaint Chief Complaint: MHE - History obtained from History obtained from: Patient - History of Present Illness Primary symptom: Other (68-year-old gentleman who presents accompanied by a friend for continued problems with severe anxiety. Briefly his about a year and a half ago and he had appropriate grief to that but about 5 weeks ago met a lady friend with whom he has had a non-intimate relationship. That has made him quite anxious. He tried some lorazepam which was not really helpful and his doctor started him on sertraline with intolerable side effects. He felt unsafe going home from the office today.) Review of Systems Ten Systems: 10 systems reviewed and negative Constitutional: reports: Reviewed and negative Throat: reports: Reviewed and negative Cardiac: reports: Reviewed and negative PD PAST MEDICAL HISTORY - Past Medical History Past Medical History: Yes Cardiovascular: High cholesterol Respiratory: None Neuro: None Endocrine/Autoimmune: None GI: None : Benign prostate hypertrophy HEENT: None Psych: Depression, Anxiety Musculoskeletal: Other Derm: Eczema - Past Surgical History Past Surgical History: Yes General: Cholecystectomy HEENT: Detached retina repair, Tonsil/Adenoidectomy - Present Medications Home Medications: Ambulatory Orders Medication Instructions Recorded Confirmed Aspirin [Aspir 81] 81 mg PO DAILY 05/25/13 11/07/18 [place]-3 Fatty Acids/Fish Oil [Fish 1 each PO DAILY 05/25/13 03/08/16 Oil 1,000 mg Capsule] Pravastatin Sodium [Pravachol] 40 mg PO DAILY 05/25/13 11/07/18 Tamsulosin [Flomax] 0.4 mg PO DAILY 05/25/13 11/07/18 HYDROcod/ACETAM 5/325 [[place] 5/325] 1 - 2 ea PO Q6H PRN #15 tablet 11/07/18 - Allergies Allergies/Adverse Reactions: Allergies Allergy/AdvReac Type Severity Reaction Status Date / Time No Known Drug Allergies Allergy Verified 04/07/19 16:42 - Social History Does the pt smoke?: No Smoking Status: Never smoker Does the pt drink ETOH?: Yes Does the pt have substance abuse?: No - Family History Family history: reports: Non contributory - Immunizations Immunizations are current?: Yes - POLST Patient has POLST: No PD ED PE NORMAL - Vitals Vital signs reviewed: Yes - General General: Alert and oriented X 3, No acute distress - HEENT HEENT: PERRL, EOMI - Neck Neck: Supple, no meningeal sign, No bony TTP - Cardiac Cardiac: RRR, No murmur - Respiratory Respiratory: No respiratory distress, Clear bilaterally - Abdomen Abdomen: Soft, Non tender - Back Back: No CVA TTP, No spinal TTP - Derm Derm: Normal color, Warm and dry - Extremities Extremities: No edema, No calf tenderness / cord - Neuro Neuro: Alert and oriented X 3, Normal speech Results - Vitals Vitals: Vital Signs - 24 hr 04/07/19 04/07/19 04/07/19 16:38 18:47 19:10 Temperature 36.0 C L 36.9 C Heart Rate 74 63 Respiratory 20 12 16 Rate Blood Pressure 160/109 H 157/78 H O2 Saturation 97 97 04/07/19 20:07 Temperature Heart Rate Respiratory 21 Rate Blood Pressure O2 Saturation Oxygen O2 Source Room air - Labs Labs: Laboratory Tests 04/07/19 04/07/19 04/07/19 17:05 17:05 17:20 WBC 10.3 RBC 6.13 H Hgb 17.3 Hct 53.7 H MCV 87.6 MCH 28.2 MCHC 32.2 RDW 14.1 Plt Count 315 MPV 9.1 Neut # (Auto) 7.2 H Lymph # (Auto) 2.3 [place] # (Auto) 0.7 Eos # (Auto) 0.0 Baso # (Auto) 0.0 Absolute Nucleated RBC 0.00 Nucleated RBC % 0.0 Sodium 140 Potassium 3.6 Chloride 104 Carbon Dioxide 20 L Anion Gap 16.0 H BUN 15 Creatinine 0.9 Estimated GFR (MDRD) 84 L Glucose 113 H Calcium 10.4 H Total Bilirubin 1.1 H AST 24 ALT 29 Alkaline Phosphatase 71 Total Protein 7.8 Albumin 4.5 Globulin 3.3 Albumin/Globulin Ratio 1.4 Lipase 28 Urine Color YELLOW Urine Clarity CLEAR Urine pH 7.5 Ur Specific [place] 1.010 Urine Protein NEGATIVE Urine Glucose (UA) NEGATIVE Urine Ketones NEGATIVE Urine Occult Blood NEGATIVE Urine Nitrite NEGATIVE Urine Bilirubin NEGATIVE Urine Urobilinogen 0.2 (NORMAL) Ur Leukocyte Esterase NEGATIVE Ur Microscopic Review NOT INDICATED Urine Culture Comments NOT INDICATED Urine Opiates Screen NEGATIVE Ur Oxycodone Screen NEGATIVE Urine Methadone Screen NEGATIVE Ur Propoxyphene Screen NEGATIVE Ur Barbiturates Screen NEGATIVE Ur Tricyclics Screen NEGATIVE Ur Phencyclidine Scrn NEGATIVE Ur Amphetamine Screen NEGATIVE U Methamphetamines Scrn NEGATIVE U Benzodiazepines Scrn POSITIVE H Urine Cocaine Screen NEGATIVE U Cannabinoids Screen NEGATIVE Ethyl Alcohol < 5.0 PD MEDICAL DECISION MAKING - ED course ED course: 60-year-old gentleman presents with severe anxiety, he has failed outpatient treatment and requests inpatient stabilization. He was seen by the social media community manager who arranged for a bed at [facility] under the care of Dr. Oquendo. [place] were completed. He is stable for transport for psychiatric care. Departure - Departure Disposition: 65 Psych Hosp/Unit DC/Xfer Clinical Impression: Anxiety Condition: Fair
[2019-04-07 17:11] LABS: BASOPHILS % (AUTO) 0.4 %; EOSINOPHILS % (AUTO) 0.3 %; HGB - HEMOGLOBIN 17.3 g/dL (14.0-18.0); LYMPHOCYTES # (AUTO) 2.3 10^3/uL (1.5-3.5); LYMPHOCYTES % (AUTO) 21.9 %; MEAN CORPUSCULAR HEMOGLOBIN 28.2 pg (27.0-31.0); MEAN CORPUSCULAR HGB CONC 32.2 g/dL (32.0-36.0); MEAN CORPUSCULAR VOLUME 87.6 fL (80.0-94.0); MEAN PLATELET VOLUME 9.1 fL (7.4-11.4); MONOCYTES # (AUTO) 0.7 10^3/uL (0.0-1.0); NEUTROPHILS # (AUTO) 7.2 10^3/uL (1.5-6.6); NEUTROPHILS % (AUTO) 69.8 %; PLT - PLATELET COUNT 315 10^3/uL (130-450); RED BLOOD COUNT 6.13 10^6/uL (4.70-6.10); RED CELL DISTRIBUTION WIDTH 14.1 % (12.0-15.0); WHITE BLOOD COUNT 10.3 x10^3/uL (4.8-10.8)
[2019-04-07 17:23] LABS: ALBUMIN 4.5 g/dL (3.2-5.5); ALBUMIN/GLOBULIN RATIO 1.4 (1.0-2.2); ALKALINE PHOSPHATASE 71 IU/L (42-121); ALT ALANINE AMINOTRANSFERASE 29 IU/L (10-60); AST ASPARTATE AMINOTRANSFERASE 24 IU/L (10-42); BILIRUBIN,TOTAL 1.1 mg/dL (0.2-1.0); BUN - BLOOD UREA NITROGEN 15 mg/dL (6-20); CALCIUM 10.4 mg/dL (8.5-10.3); CARBON DIOXIDE - CO2 20 mmol/L (21-32); CHLORIDE 104 mmol/L (101-111); CREATININE 0.9 mg/dL (0.6-1.2); GFR - MDRD 84 (>89); GLUCOSE 113 mg/dL (70-100); LIPASE 28 U/L (22-51); SODIUM 140 mmol/L (135-145); TOTAL PROTEIN 7.8 g/dL (6.7-8.2)
[2019-04-07 17:44] LABS: MUDS CUTOFF CONCENTRATIONS CUTOFF CONC BELOW:
[2019-04-07 17:48] LABS: BILIRUBIN,URINE NEGATIVE (NEGATIVE); GLUCOSE, URINE (UA) NEGATIVE (NEGATIVE); KETONES,URINE (UA) NEGATIVE (NEGATIVE); LEUKOCYTE ESTERASE, URINE NEGATIVE (NEGATIVE); NITRITE,URINE NEGATIVE (NEGATIVE); OCCULT BLOOD,URINE NEGATIVE (NEGATIVE); PH,URINE 7.5 PH (5.0-7.5); PROTEIN,URINE NEGATIVE (NEGATIVE); UROBILINOGEN,URINE 0.2 (NORMAL) E.U./dL (NORMAL)
[2019-04-07 17:49] LABS: CLARITY,URINE CLEAR (CLEAR)
[2019-04-07 17:58] LABS: AMPHETAMINE SCREEN,URINE NEGATIVE (NEGATIVE); BENZODIAZEPINES SCREEN, URINE POSITIVE (NEGATIVE); COCAINE SCREEN URINE NEGATIVE (NEGATIVE); METHADONE SCREEN, URINE NEGATIVE (NEGATIVE); METHAMPHETAMINES SCREEN, URINE NEGATIVE (NEGATIVE); OPIATE SCREEN, URINE NEGATIVE (NEGATIVE); OXYCODONE SCREEN, URINE NEGATIVE (NEGATIVE); TRICYCLIC ANTIDEPRESSANT,URINE NEGATIVE (NEGATIVE)
[2019-04-07 17:59] LABS: PROPOXYPHENE SCREEN, URINE NEGATIVE (NEGATIVE)
[2019-04-07] MEDS ORDERED: HALOPERIDOL 5 MG/ML VIAL IM STA (20:06)
[2019-04-08 00:19] VITALS: BP 116/58
== END 2019-04-08 00:20 ==
LOC: ED 16:31
DX: F41.9 Anxiety disorder, unspecified (principal)
CPT/HCPCS: 36415; 80053; 80306; 80320; 81001; 81003; 83690; 85025; 87086; 93005; 96372; 99283; 99285

== ENCOUNTER 2019-04-22 10:00 | Outpatient (CLI) | payer MEDICARE, BC | END 2019-04-22 10:01 | disposition home or self-care (01) | LOC: LAB.R 10:00 | PROVIDERS: ATTEND Family Medicine | DX: K92.1 Melena (principal) | CPT/HCPCS: 82274 ==

== ENCOUNTER 2019-05-15 16:23 | Emergency (ER) | payer MEDICARE, BC ==
[~2019-05-15 16:23] MED LIST: IOVERSOL 320 100 ML VIAL IVP ONE
[2019-05-15] MEDS ORDERED: HYDROmorphone 1 MG/ML CARPUJECT ONE (16:33)
[2019-05-15] MEDS ORDERED: HYDROmorphone 1 MG/ML CARPUJECT IVP STA (16:40)
[2019-05-15] MEDS ORDERED: SODIUM CHLORIDE 0.9% 1,000 ML IV ONE (16:40)
--- NOTE | 2019-05-15 16:41 | ED Physician Documentation ---
PD HPI ABD PAIN - Stated complaint Stated Complaint: ABD PX - Chief complaint Chief Complaint: Abd Pain - History obtained from History obtained from: Patient - History of Present Illness Timing - onset: Other (68-year-old gentleman with history of anxiety and remote cholecystectomy, also a history of prostate cancer presents with severe central and periumbilical abdominal pain starting today. He had a similar episode 2 weeks ago that was diagnosed as constipation at another ER. He had a bowel movement yesterday which she describes as soft. He is been taking a lot of laxatives. No vomiting.) Review of Systems Ten Systems: 10 systems reviewed and negative Constitutional: denies: Fever, Chills Nose: denies: Rhinorrhea / runny nose Cardiac: denies: Chest pain / pressure, Palpitations Respiratory: denies: Dyspnea, Cough PD PAST MEDICAL HISTORY - Past Medical History Cardiovascular: High cholesterol Respiratory: None Neuro: None Endocrine/Autoimmune: None GI: None : Benign prostate hypertrophy HEENT: None Psych: Depression, Anxiety Musculoskeletal: Other Derm: Eczema - Past Surgical History Past Surgical History: Yes General: Cholecystectomy HEENT: Detached retina repair, Tonsil/Adenoidectomy - Present Medications Home Medications: Ambulatory Orders Medication Instructions Recorded Confirmed [place]-3 Fatty Acids/Fish Oil [Fish 1 each PO DAILY 05/25/13 03/08/16 Oil 1,000 mg Capsule] Pravastatin Sodium [Pravachol] 40 mg PO DAILY 05/25/13 11/07/18 Tamsulosin [Flomax] 0.4 mg PO DAILY 05/25/13 11/07/18 LORazepam [Ativan] 0.5 mg PO HS PRN 05/15/19 05/15/19 Lactulose [Generlac] 10 gm PO QID PRN #200 ml 05/15/19 - Allergies Allergies/Adverse Reactions: Allergies Allergy/AdvReac Type Severity Reaction Status Date / Time No Known Drug Allergies Allergy Verified 05/15/19 16:29 - Social History Does the pt smoke?: No Smoking Status: Never smoker Does the pt drink ETOH?: Yes Does the pt have substance abuse?: No - Immunizations Immunizations are current?: Yes - POLST Patient has POLST: No PD ED PE NORMAL - Vitals Vital signs reviewed: Yes - General General: Alert and oriented X 3, Other (He appears uncomfortable) - HEENT HEENT: PERRL, EOMI - Neck Neck: Supple, no meningeal sign, No bony TTP - Cardiac Cardiac: RRR, No murmur - Respiratory Respiratory: No respiratory distress, Clear bilaterally - Abdomen Abdomen: Normal bowel sounds, Other (Soft, large reducible umbilical hernia, significant lower abdominal tenderness without surgical signs) - Back Back: No CVA TTP, No spinal TTP - Derm Derm: Normal color, Warm and dry - Extremities Extremities: No edema, No calf tenderness / cord - Neuro Neuro: Alert and oriented X 3, Normal speech Results - Vitals Vitals: Vital Signs - 24 hr 05/15/19 05/15/19 05/15/19 16:26 16:59 17:29 Temperature 36.7 C Heart Rate 81 64 60 Respiratory 18 16 16 Rate Blood Pressure 160/85 H 150/86 H 144/90 H O2 Saturation 98 96 96 05/15/19 05/15/19 17:30 18:00 Temperature Heart Rate 60 58 L Respiratory 16 16 Rate Blood Pressure 144/90 H 149/78 H O2 Saturation 96 92 Oxygen O2 Source Room air - Labs Labs: Laboratory Tests 05/15/19 05/15/19 05/15/19 16:20 16:20 16:45 WBC 10.0 RBC 5.84 Hgb 17.2 Hct 52.1 H MCV 89.2 MCH 29.5 MCHC 33.0 RDW 13.4 Plt Count 311 MPV 9.0 Neut # (Auto) 7.0 H Lymph # (Auto) 2.2 [place] # (Auto) 0.7 Eos # (Auto) 0.0 Baso # (Auto) 0.0 Absolute Nucleated RBC 0.00 Nucleated RBC % 0.0 Sodium 139 Potassium 4.0 Chloride 103 Carbon Dioxide 26 Anion Gap 10.0 BUN 20 Creatinine 1.1 Estimated GFR (MDRD) 67 L Glucose 123 H Lactic Acid 1.0 Calcium 9.3 Total Bilirubin 0.8 AST 26 ALT 31 Alkaline Phosphatase 66 Total Protein 7.8 Albumin 4.5 Globulin 3.3 Albumin/Globulin Ratio 1.4 Lipase 39 Urine Color Urine Clarity Urine pH Ur Specific [place] Urine Protein Urine Glucose (UA) Urine Ketones Urine Occult Blood Urine Nitrite Urine Bilirubin Urine Urobilinogen Ur Leukocyte Esterase Ur Microscopic Review Urine Culture Comments 05/15/19 17:35 WBC RBC Hgb Hct MCV MCH MCHC RDW Plt Count MPV Neut # (Auto) Lymph # (Auto) [place] # (Auto) Eos # (Auto) Baso # (Auto) Absolute Nucleated RBC Nucleated RBC % Sodium Potassium Chloride Carbon Dioxide Anion Gap BUN Creatinine Estimated GFR (MDRD) Glucose Lactic Acid Calcium Total Bilirubin AST ALT Alkaline Phosphatase Total Protein Albumin Globulin Albumin/Globulin Ratio Lipase Urine Color YELLOW Urine Clarity CLEAR Urine pH 7.0 Ur Specific [place] <=1.005 Urine Protein NEGATIVE Urine Glucose (UA) NEGATIVE Urine Ketones NEGATIVE Urine Occult Blood NEGATIVE Urine Nitrite NEGATIVE Urine Bilirubin NEGATIVE Urine Urobilinogen 0.2 (NORMAL) Ur Leukocyte Esterase NEGATIVE Ur Microscopic Review NOT INDICATED Urine Culture Comments NOT INDICATED PD MEDICAL DECISION MAKING - ED course ED course: Feeling much better after Dilaudid, CT shows that the umbilical hernia might be slightly inflamed, however it is easily reducible, and is not overtly inflamed on exam. To my eye the CT also shows modest stool load with a possible mild fecal impaction on the left/sigmoid colon. We will clean him out. He has a colonoscopy scheduled next week. He is having a lot of anxiety and this is certainly contributing I think. Departure - Departure Disposition: 01 Home, Self Care Clinical Impression: Constipation Qualifiers: Constipation type: slow transit constipation Qualified Code(s): K59.01 - Slow transit constipation Condition: Good Record reviewed to determine appropriate education?: Yes Instructions: ED Constipation, Abdominal Pain Prescriptions: Lactulose [Generlac] 10 gm PO QID PRN #200 ml PRN Reason: Constipation Comments: Talk with the surgeon you are seeing about the umbilical hernia. Return for any worsening symptoms.
[2019-05-15] MEDS ORDERED: IOVERSOL 320 100 ML VIAL IVP ONE ×2 (16:43→17:33)
[2019-05-15 16:49] LABS: BASOPHILS % (AUTO) 0.4 %; EOSINOPHILS % (AUTO) 0.4 %; HGB - HEMOGLOBIN 17.2 g/dL (14.0-18.0); LYMPHOCYTES # (AUTO) 2.2 10^3/uL (1.5-3.5); LYMPHOCYTES % (AUTO) 21.7 %; MEAN CORPUSCULAR HEMOGLOBIN 29.5 pg (27.0-31.0); MEAN CORPUSCULAR VOLUME 89.2 fL (80.0-94.0); MONOCYTES # (AUTO) 0.7 10^3/uL (0.0-1.0); MONOCYTES % (AUTO) 6.9 %; NEUTROPHILS % (AUTO) 70.2 %; PLT - PLATELET COUNT 311 10^3/uL (130-450); RED BLOOD COUNT 5.84 10^6/uL (4.70-6.10); RED CELL DISTRIBUTION WIDTH 13.4 % (12.0-15.0)
[2019-05-15 16:58] LABS: ALBUMIN 4.5 g/dL (3.2-5.5); ALBUMIN/GLOBULIN RATIO 1.4 (1.0-2.2); BILIRUBIN,TOTAL 0.8 mg/dL (0.2-1.0); CALCIUM 9.3 mg/dL (8.5-10.3); CREATININE 1.1 mg/dL (0.6-1.2); TOTAL PROTEIN 7.8 g/dL (6.7-8.2)
[2019-05-15 17:47] LABS: BILIRUBIN,URINE NEGATIVE (NEGATIVE); GLUCOSE, URINE (UA) NEGATIVE (NEGATIVE); KETONES,URINE (UA) NEGATIVE (NEGATIVE); LEUKOCYTE ESTERASE, URINE NEGATIVE (NEGATIVE); NITRITE,URINE NEGATIVE (NEGATIVE); OCCULT BLOOD,URINE NEGATIVE (NEGATIVE); PROTEIN,URINE NEGATIVE (NEGATIVE); UROBILINOGEN,URINE 0.2 (NORMAL) E.U./dL (NORMAL)
[2019-05-15 17:50] LABS: CLARITY,URINE CLEAR (CLEAR)
--- NOTE | 2019-05-15 18:12 | CT Report ---
Reason: IV only, abd pain Procedure Date: 05/15/2019 Accession Number: [id number] / [id number] Procedure: CT - Abdomen/Pelvis W CPT Code: Final Report FULL RESULT: EXAM: CT ABDOMEN AND PELVIS EXAM DATE: 05/15/2019 05:32 PM. CLINICAL HISTORY: Abdomen pain. COMPARISONS: ABDOMEN/PELVIS W/ 06/06/2013 3:56 PM. TECHNIQUE: Routine helical CT imaging was performed through the abdomen and pelvis. IV contrast: 90 cc of Optiray 320. Enteric contrast: No. Reconstructions: Coronal and sagittal. In accordance with CT protocol optimization, one or more of the following dose reduction techniques were utilized for this exam: automated exposure control, adjustment of mA and/or KV based on patient size, or use of iterative reconstructive technique. FINDINGS: Lung Bases: Unremarkable. Liver: Normal. No masses. Gallbladder/Bile Ducts: Contracted gallbladder. No calcified gallstones or dilated ducts.. Spleen: Normal. Pancreas: Normal. Adrenal Glands: Normal. Kidneys: Normal. No masses or hydronephrosis. Peritoneal Cavity/Bowel: Mild diverticulosis. Stool retention. No free fluid, free air or adenopathy. No masses or acute inflammatory process. The appendix is well visualized and normal. Pelvic Organs: Radioactive prostate seeds noted. Unremarkable bladder. Vasculature: No aneurysms or other significant abnormality. Bones: Degenerative disk disease at L4-L5 and L5-S1. Other: Fat-containing umbilical hernia again noted, with increased fat stranding compared with prior exam. New small fat-containing ventral hernia above the umbilicus right of midline. IMPRESSION: 1. Increased fat stranding in the fat-containing umbilical hernia concerning for inflammation/ischemia. 2. Mild diverticulosis without diverticulitis or other acute bowel abnormality. RADIA
[2019-05-15] MEDS ORDERED: MAGNESIUM CITRATE 296 ML BOTTLE PO STA (18:27)
[2019-05-15 18:50] VITALS: BP 146/76
[2019-05-15] MEDS ORDERED: KETOROLAC 30 MG/ML VIAL IVP STA (18:57)
== END 2019-05-15 19:13 | disposition home or self-care (01) ==
LOC: ED 16:23
DX: K59.01 Slow transit constipation (principal); K42.9 Umbilical hernia without obstruction or gangrene; F41.9 Anxiety disorder, unspecified; Z85.46 Personal history of malignant neoplasm of prostate; Z90.49 Acquired absence of other specified parts of digestive tract; R51 Headache
CPT/HCPCS: 36415; 70450; 74177; 80053; 81003; 83605; 83690; 85025; 96361; 96374; 96375; 99283; 99284; A9270; J1170; Q9967; 81001; 87086

== ENCOUNTER 2019-05-16 09:25 | Outpatient (CLI) | payer MEDICARE, BC | END 2019-05-16 09:26 | disposition critical access hospital (66) | LOC: EMS 09:25 | PROVIDERS: ATTEND Surgery | DX: R42 Dizziness and giddiness (principal); R11.0 Nausea; R00.0 Tachycardia, unspecified | CPT/HCPCS: A0425; A0427 ==

== ENCOUNTER 2019-05-16 10:13 | Emergency (ER) | payer MEDICARE, BC ==
[2019-05-16] MEDS ORDERED: LORazepam 2 MG/ML VIAL IVP STA (10:42)
--- NOTE | 2019-05-16 11:31 | ED Physician Documentation ---
History of Present Illness - Stated complaint Stated Complaint: DIZZY/NAUSEA - Chief complaint Chief Complaint: Neuro - History obtained from History obtained from: Patient - History of Present Illness Timing: Today Pain level max: 0 Pain level now: 0 Improved by: ativan Worsened by: nothing - Additonal information Additional information: 68-year-old male with a panic attack after taking escitalopram for the first time last night. Took what sounds like half a milligram of Ativan at home today without relief. Review of Systems Constitutional: denies: Fever, Chills GI: denies: Vomiting, Diarrhea Skin: denies: Rash Musculoskeletal: denies: Neck pain, Back pain PD PAST MEDICAL HISTORY - Past Medical History Past Medical History: Yes Cardiovascular: High cholesterol Respiratory: None Neuro: None Endocrine/Autoimmune: None GI: Chronic constipation : Benign prostate hypertrophy HEENT: None Psych: Depression, Anxiety Musculoskeletal: Other Derm: Eczema - Past Surgical History Past Surgical History: Yes General: Cholecystectomy HEENT: Detached retina repair, Tonsil/Adenoidectomy - Present Medications Home Medications: Ambulatory Orders Medication Instructions Recorded Confirmed [place]-3 Fatty Acids/Fish Oil [Fish 1 each PO DAILY 05/25/13 03/08/16 Oil 1,000 mg Capsule] Pravastatin Sodium [Pravachol] 40 mg PO DAILY 05/25/13 11/07/18 Tamsulosin [Flomax] 0.4 mg PO DAILY 05/25/13 11/07/18 LORazepam [Ativan] 0.5 mg PO HS PRN 05/15/19 05/15/19 Lactulose [Generlac] 10 gm PO QID PRN #200 ml 05/15/19 Escitalopram [Lexapro] 10 mg PO DAILY 05/16/19 05/16/19 - Allergies Allergies/Adverse Reactions: Allergies Allergy/AdvReac Type Severity Reaction Status Date / Time No Known Drug Allergies Allergy Verified 05/15/19 16:29 - Social History Does the pt smoke?: No Smoking Status: Never smoker Does the pt drink ETOH?: Yes Does the pt have substance abuse?: No - Immunizations Immunizations are current?: Yes - POLST Patient has POLST: No PD ED PE NORMAL - Vitals Vital signs reviewed: Yes - General General: Alert and oriented X 3, No acute distress - HEENT HEENT: Moist mucous membranes - Neck Neck: Supple, no meningeal sign - Cardiac Cardiac: RRR - Respiratory Respiratory: No respiratory distress, Clear bilaterally - Abdomen Abdomen: Soft, Non tender, Non distended - Derm Derm: Warm and dry - Neuro Neuro: Alert and oriented X 3 - Psych Psych: Other (anxious) Results - Vitals Vitals: Vital Signs - 24 hr 05/16/19 05/16/19 10:15 11:43 Temperature 36.5 C Heart Rate 65 56 L Respiratory 18 18 Rate Blood Pressure 132/84 H 136/78 H O2 Saturation 98 99 Oxygen O2 Source Room air PD MEDICAL DECISION MAKING - ED course Complexity details: reviewed old records, considered differential, d/w patient, d/w family ED course: Patient feels much better after Ativan. He appears to have significant anxiety and likely still depression from the loss of his last year. Would likely benefit from cognitive behavioral therapy. Would also likely benefit from increasing his hobbies and social interactions at home. We will have him stop the escitalopram. Patient is well-appearing, nontoxic. Afebrile. Patient counseled regarding signs and symptoms for which I believe and urgent re- evaluation would be necessary. Patient with good understanding of and agreement to plan and is comfortable going home at this time This document was made in part using voice recognition software. While efforts are made to proofread this document, sound alike and grammatical errors may occur. Departure - Departure Disposition: 01 Home, Self Care Clinical Impression: Anxiety attack Condition: Good Instructions: ED Stress React Follow-Up: your,doctor tomorrow [Other] Comments: Follow-up with your doctor tomorrow for further care. Return if you worsen. Continue to find hobbies and ways to get out and socialize. Discharge Date/Time: 05/16/19 11:50
[2019-05-16 11:43] VITALS: BP 136/78
== END 2019-05-16 11:50 | disposition home or self-care (01) ==
LOC: EDBD → EDUNIT# → ED 10:13
DX: F41.9 Anxiety disorder, unspecified (principal)
CPT/HCPCS: 99283; J2060

== ENCOUNTER 2019-05-26 09:40 | Emergency (ER) | payer MEDICARE, BC ==
--- NOTE | 2019-05-26 09:45 | ED Physician Documentation ---
PD HPI HEADACHE - Stated complaint Stated Complaint: HEADACHE - History obtained from History obtained from: Patient - History of Present Illness Timing - onset: Today Timing - onset during: Rest, Light activity Timing - duration: Hours Timing - details: Abrupt onset, Still present Worst headache ever?: Worst headache ever? (He had an onset of significant right sided parietal and temporal pain which she states is sharp and intense and "excruciating". He had an onset of it today. He states he had a little bit of a headache yesterday after his colonoscopy. The headache came on more significant today. He denies any similar episodes. He denies any injury.) Location: Front, Right Quality: Stabbing. No: Thunderclap Associated symptoms: Nausea. No: Fever, Stiff neck, Vomiting, Weakness, Numbness, Syncope, Vision changes Worsened by: Light. No: Noise Contributing factors: No: Anticoagulated, Recent illness, Trauma Similar symptoms before: Has not had sx before Recently seen: Clinic (colonoscopy yesterday in eval of recent recurrent abd pains.), Other (He had been having some headaches to some degree over the last few weeks and had a CT of the head done 11 days ago without contrast that was normal.) Review of Systems Constitutional: denies: Fever, Chills, Myalgias Nose: denies: Rhinorrhea / runny nose, Congestion Throat: denies: Sore throat Respiratory: denies: Cough PD PAST MEDICAL HISTORY - Past Medical History Cardiovascular: High cholesterol Respiratory: None Neuro: None Endocrine/Autoimmune: None GI: Chronic constipation : Benign prostate hypertrophy HEENT: None Psych: Depression, Anxiety Musculoskeletal: Other Derm: Eczema - Past Surgical History Past Surgical History: Yes General: Cholecystectomy HEENT: Detached retina repair, Tonsil/Adenoidectomy - Present Medications Home Medications: Ambulatory Orders Medication Instructions Recorded Confirmed [place]-3 Fatty Acids/Fish Oil [Fish 1 each PO DAILY 05/25/13 03/08/16 Oil 1,000 mg Capsule] Pravastatin Sodium [Pravachol] 40 mg PO DAILY 05/25/13 11/07/18 Tamsulosin [Flomax] 0.4 mg PO DAILY 05/25/13 11/07/18 LORazepam [Ativan] 0.5 mg PO HS PRN 05/15/19 05/15/19 Lactulose [Generlac] 10 gm PO QID PRN #200 ml 05/15/19 Escitalopram [Lexapro] 10 mg PO DAILY 05/16/19 05/16/19 Hydrocodone/Acetaminophen [[place] 1 each PO Q6H PRN #10 tablet 05/26/19 5-325 Tablet] Promethazine [Phenergan] 25 mg PO Q6H PRN #10 tab 05/26/19 risperiDONE [Risperidone] 2 mg PO QPM #15 tablet 05/26/19 - Allergies Allergies/Adverse Reactions: Allergies Allergy/AdvReac Type Severity Reaction Status Date / Time No Known Drug Allergies Allergy Verified 05/26/19 18:28 - Social History Does the pt smoke?: No Smoking Status: Never smoker Does the pt drink ETOH?: Yes Does the pt have substance abuse?: No - Immunizations Immunizations are current?: Yes - POLST Patient has POLST: No PD ED PE NORMAL - Vitals Vital signs reviewed: Yes - General General: Alert and oriented X 3, Well developed/nourished, Other (The patient appears in significant distress and holding the right side of his head and states when seen in pain.) - HEENT HEENT: Ears normal, Moist mucous membranes, Pharynx benign - Neck Neck: Supple, no meningeal sign, No adenopathy, No JVD, No bruit - Cardiac Cardiac: RRR, No murmur - Respiratory Respiratory: Clear bilaterally - Abdomen Abdomen: Soft, Non tender - Back Back: No CVA TTP - Derm Derm: Normal color, Warm and dry, No rash - Extremities Extremities: No deformity, No tenderness to palpate, No edema - Neuro Neuro: Alert and oriented X 3, cooking chef 2-12 intact, No motor deficit, No sensory deficit, Normal speech Eye Opening: Spontaneous Motor: Obeys Commands Verbal: Oriented GCS Score: 15 Results - Vitals Vitals: Vital Signs - 24 hr 05/26/19 05/26/19 05/26/19 09:41 11:30 13:00 Temperature 37.0 C Heart Rate 67 49 L 46 L Respiratory 20 13 19 Rate Blood Pressure 135/77 H 139/60 H 118/92 H O2 Saturation 97 98 98 05/26/19 17:32 Temperature 36.8 C Heart Rate 65 Respiratory 16 Rate Blood Pressure 140/68 H O2 Saturation 98 Oxygen O2 Source Room air Oxygen Flow Rate 2 - Labs Labs: Laboratory Tests 05/26/19 05/26/19 10:16 10:16 WBC 6.5 RBC 5.31 Hgb 15.5 Hct 47.1 MCV 88.7 MCH 29.2 MCHC 32.9 RDW 13.4 Plt Count 259 MPV 9.1 Neut # (Auto) 4.4 Lymph # (Auto) 1.5 Wolfe # (Auto) 0.5 Eos # (Auto) 0.1 Baso # (Auto) 0.0 Absolute Nucleated RBC 0.00 Nucleated RBC % 0.0 Sodium 140 Potassium 3.7 Chloride 109 Carbon Dioxide 22 Anion Gap 9.0 BUN 12 Creatinine 0.8 Estimated GFR (MDRD) 96 Glucose 103 H Calcium 8.4 L Total Bilirubin 0.7 AST 20 ALT 22 Alkaline Phosphatase 55 Total Protein 6.3 L Albumin 3.8 Globulin 2.5 Albumin/Globulin Ratio 1.5 Lipase 31 - Rads (name of study) head and neck angio Radiology: Prelim report reviewed (No acute vascular abnormalities and no structural abnormalities on the noncontrast portion as well.), See rad report PD MEDICAL DECISION MAKING - ED course Complexity details: reviewed results, re-evaluated patient (He is feeling improved after some IV medications including Reglan Toradol and hydromorphone. He states his headache is down to a minimal level. However subsequently prior to discharge she was started to get a return of the headache this time a little bit more on the left side. He is IV had already been pulled so he was given an IM dose of Dilaudid with enough improvement in his headache that he felt comfortable. His vital signs and exam and CT GIFFORD are benign. The character of his headaches sounds like cluster headaches though he has not had them in the past. He did get improvement with medications as well as oxygen.), considered differential (The character of his headache does sound like cluster headaches. However he did have colonoscopy yesterday and did have sedation with that. Severe headache on the side would raise a concern for vascular process such as dissection or aneurysm and also the possibility of venous abnormality given the dehydrating potential with prepping for the colonoscopy. We will check a CT angios the head. Also check some basic labs. Plan to give IV fluids and medications.), d/w patient Departure - Departure Disposition: 01 Home, Self Care Clinical Impression: Right-sided headache Cluster headache Qualifiers: Headache chronicity pattern: unspecified pattern Intractability: not intractable Qualified Code(s): G44.009 - Cluster headache syndrome, unspecified, not intractable Condition: Stable Record reviewed to determine appropriate education?: Yes Instructions: ED Cephalgia Unspecified Follow-Up: Fabián Colin MD [Primary Care Provider] - Prescriptions: Hydrocodone/Acetaminophen [[place] 5-325 Tablet] 1 each PO Q6H PRN #10 tablet PRN Reason: Pain Promethazine [Phenergan] 25 mg PO Q6H PRN #10 tab PRN Reason: Nausea / Vomiting risperiDONE [Risperidone] 2 mg PO QPM #15 tablet Comments: Your headache sounds like a version of a migraine called cluster headache. This may or may not be recurrent. If you get a recurrent one, you can try promethazine and hydrocodone combination to see if it helps the headache go away. Given your difficulty sleeping recently, we could also try risperidone nightly to help with sleep and this may help generally reduce some of the anxiety during the day as well. Follow-up with your primary care next week as planned. Continue with the coun seling. Resume some outside activities such as walks or exercise daily or any social groups. Discharge Date/Time: 05/26/19 17:34
[2019-05-26] MEDS ORDERED: SODIUM CHLORIDE 0.9% 1,000 ML IV ONE (09:59)
[2019-05-26] MEDS ORDERED: HYDROmorphone 2 MG/ML VIAL IVP STA (10:00)
[2019-05-26] MEDS ORDERED: KETOROLAC 30 MG/ML VIAL IVP STA (10:00)
[2019-05-26] MEDS ORDERED: METOCLOPRAMIDE 10 MG/2 ML VIAL IVP STA (10:03)
[2019-05-26] MEDS ORDERED: IOVERSOL 320 100 ML VIAL IVP ONE ×2 (10:05→17:14)
[2019-05-26 10:35] LABS: BASOPHILS % (AUTO) 0.5 %; EOSINOPHILS # (AUTO) 0.1 10^3/uL (0.0-0.7); EOSINOPHILS % (AUTO) 0.9 %; HGB - HEMOGLOBIN 15.5 g/dL (14.0-18.0); LYMPHOCYTES # (AUTO) 1.5 10^3/uL (1.5-3.5); MEAN CORPUSCULAR HEMOGLOBIN 29.2 pg (27.0-31.0); MEAN CORPUSCULAR HGB CONC 32.9 g/dL (32.0-36.0); MEAN CORPUSCULAR VOLUME 88.7 fL (80.0-94.0); MEAN PLATELET VOLUME 9.1 fL (7.4-11.4); MONOCYTES # (AUTO) 0.5 10^3/uL (0.0-1.0); MONOCYTES % (AUTO) 8.2 %; NEUTROPHILS # (AUTO) 4.4 10^3/uL (1.5-6.6); NEUTROPHILS % (AUTO) 67.1 %; PLT - PLATELET COUNT 259 10^3/uL (130-450); RED BLOOD COUNT 5.31 10^6/uL (4.70-6.10); RED CELL DISTRIBUTION WIDTH 13.4 % (12.0-15.0); WHITE BLOOD COUNT 6.5 x10^3/uL (4.8-10.8)
[2019-05-26 10:49] LABS: ALBUMIN 3.8 g/dL (3.2-5.5); ALBUMIN/GLOBULIN RATIO 1.5 (1.0-2.2); BILIRUBIN,TOTAL 0.7 mg/dL (0.2-1.0); CALCIUM 8.4 mg/dL (8.5-10.3); CREATININE 0.8 mg/dL (0.6-1.2); TOTAL PROTEIN 6.3 g/dL (6.7-8.2)
[2019-05-26] MEDS ORDERED: ACETAMINOPHEN 1,000 MG/100 ML 100 ML IV STA (11:09)
--- NOTE | 2019-05-26 11:28 | CT Report ---
Reason: L sided facial droop, L neck pain Procedure Date: 05/26/2019 Accession Number: [id number] / [id number] Procedure: CT - ANGIO NECK W CPT Code: Final Report FULL RESULT: EXAM: CT ANGIOGRAM NECK EXAM DATE: 05/26/2019 10:47 AM. CLINICAL HISTORY: Left-sided facial droop, left neck pain. COMPARISON: HEAD W/O 05/15/2019 12:54 PM. TECHNIQUE: Routine axial helical imaging was performed from the skull base through the aortic arch. Reconstructions: Routine multiplanar 3D MIP reconstructions. IV Contrast: Optiray 320 80 mL. Evaluation of arterial stenosis is based on a NASCET method of measurement. In accordance with CT protocol optimization, one or more of the following dose reduction techniques were utilized for this exam: automated exposure control, adjustment of mA and/or KV based on patient size, or use of iterative reconstructive technique. FINDINGS: Great vessel origins: No hemodynamically significant stenosis is present at the great vessel origins. Right Carotid: The common carotid, internal carotid, and external carotid arteries are widely patent. No dissection, significant atherosclerotic plaque, or calcification identified. Left Carotid: The common carotid, internal carotid, and external carotid arteries are widely patent. No dissection, significant atherosclerotic plaque, or calcification identified. Vertebrals: No significant stenosis or abrupt caliber change is present in either cervical vertebral artery. Intracranial Circulation: The reader is referred to the patient CT angiogram head performed today and dictated under a separate cover. Other: No mass is present in either orbit. No mass is present in either parotid gland or in either submandibular gland. No nasopharyngeal masses present. A subtle at least 4-5 mm thyroid nodule is seen in the lateral aspect of the right thyroid lobe. The thyroid gland is not enlarged. No subglottic stenosis is present. No bulky lymphadenopathy is present in the neck. No suspicious spiculated mass is present in either lung apex. Scattered degenerative disk disease and osteophyte formation is seen in the visualized spine. In the cervical spine this is most evident C5-C6, C6-C7, and C7-T1. IMPRESSION: 1. No significant stenosis is seen in either cervical ICA or in either cervical vertebral artery. 2. At least one thyroid nodule is present on the right. CT cannot distinguish benign from malignant thyroid disease. Thyroid ultrasound may be of value. 3. Degenerative changes are seen in the visualized spine. RADIA
--- NOTE | 2019-05-26 11:47 | CT Report ---
Reason: L sided facial droop Procedure Date: 05/26/2019 Accession Number: [id number] / [id number] Procedure: CT - ANGIO HEAD W/WO CPT Code: Final Report FULL RESULT: EXAM: CT ANGIOGRAM HEAD. CT SCAN OF THE HEAD WITHOUT AND WITH CONTRAST. EXAM DATE: 05/26/2019 10:47 AM CLINICAL HISTORY: Left-sided facial droop. COMPARISON: CT head without contrast 05/15/2019. CT angiogram neck from today. TECHNIQUE: - CT Scan Head: Using a multidetector scanner, axial images were acquired from the foramen magnum to the skull vertex prior to and following contrast administration. - CT Angiogram: Using a multidetector scanner, high-resolution axial images were acquired from the skull base through vertex following rapid infusion of intravenous contrast. Reformats: Multiplanar MIP reformats were reconstructed. Nascet criteria used for stenosis measurement. IV Contrast: Optiray 320 [address] mL. In accordance with CT protocol optimization, one or more of the following dose reduction techniques were utilized for this exam: automated exposure control, adjustment of mA and/or KV based on patient size, or use of iterative reconstructive technique. FINDINGS: NON-CONTRAST HEAD: Parenchyma: No intraparenchymal hemorrhage. No evidence of mass, midline shift, or CT findings of infarction. Solomon-white differentiation is distinct. Extraaxial Spaces: Normal for age. No subdural or epidural collections identified. Ventricles: Normal in size and position. Bones: No evidence of fracture or calvarial defect. Other: None. POST-CONTRAST HEAD: No abnormal enhancement. CT ANGIOGRAM HEAD: No hemodynamically significant stenosis, filling defect, or occlusion is present in the proximal aspect of the major intracranial vessels. Atherosclerotic calcification is seen in the cavernous ICA bilaterally. This does not result in a hemodynamically significant stenosis. Directed lateral to the cavernous ICA on the right is a 1-2 mm outpouching of contrast. Image 116 series 9. Directed inferior to the paraclinoid ICA on the right best seen on image 125 series 9 is a 1-2 mm outpouching of contrast. Directed inferior to the paraclinoid ICA on the left is a 1 mm outpouching of contrast image 128 series 9. Expected enhancement is present in the major dural venous sinuses. Other: No mass is present in either orbit. Retention cyst/polyp formation is seen in each maxillary sinus. Bilateral ethmoid air cell mucosal thickening is seen. Mucosal thickening is seen in each frontal sinus. IMPRESSION: CT Head: 1. No acute intracranial process. 2. No abnormal enhancement. CTA Head: 1. No intracranial stenosis. 2. No filling defect or occlusion is present in the proximal aspect of the major intracranial vessels. 3. Infundibular origin versus tiny aneurysm involving the paraclinoid ICA bilaterally. The former is favored. 4. Suspect an aneurysm projecting lateral to the cavernous ICA on the right. OTHER: 1. Paranasal sinus mucosal disease discussed above. RADIA
[2019-05-26] MEDS ORDERED: LORazepam 2 MG/ML VIAL IVP STA (13:04)
[2019-05-26] MEDS ORDERED: HYDROmorphone 1 MG/ML CARPUJECT IM STA ×2 (14:38→15:39)
[2019-05-26 17:34] VITALS: BP 140/68
== END 2019-05-26 17:34 | disposition home or self-care (01) ==
LOC: EDUNIT# → ED 09:40
DX: G44.009 Cluster headache syndrome, unspecified, not intractable (principal); G47.00 Insomnia, unspecified
CPT/HCPCS: 36415; 70496; 70498; 80053; 83690; 85025; 96361; 96365; 96372; 96375; 99284; 99285; J0131; J1170; J2060; J2765; Q9967

== ENCOUNTER 2019-05-26 11:27 | Outpatient (CLI) | payer MEDICARE, BC | END 2019-05-26 11:28 | disposition critical access hospital (66) | LOC: EMS 11:27 | PROVIDERS: ATTEND Surgery | DX: R51 Headache (principal) | CPT/HCPCS: A0425; A0427 ==

== ENCOUNTER 2019-05-26 18:12 | Emergency (ER) | payer MEDICARE, BC ==
[2019-05-26 20:23] VITALS: BP 120/70
== END 2019-05-26 20:05 | disposition left against medical advice (07) ==
LOC: ED 18:12
DX: Z53.21 Procedure and treatment not carried out due to patient leaving prior to being seen by health care provider (principal)

== ENCOUNTER 2019-06-09 12:01 | Outpatient (CLI) | payer MEDICARE, BC | END 2019-06-09 12:02 | disposition critical access hospital (66) | LOC: EMS 12:01 | PROVIDERS: ATTEND Surgery | DX: R10.9 Unspecified abdominal pain (principal); R51 Headache; K62.89 Other specified diseases of anus and rectum | CPT/HCPCS: A0425; A0429 ==

== ENCOUNTER 2019-06-09 12:21 | Emergency (ER) | payer MEDICARE, BC ==
--- NOTE | 2019-06-09 12:51 | ED Physician Documentation ---
PD HPI ABD PAIN - Stated complaint Stated Complaint: H/A ABDOMINAL PX - Chief complaint Chief Complaint: Abd Pain - History obtained from History obtained from: Patient PD PAST MEDICAL HISTORY - Past Medical History Cardiovascular: High cholesterol Respiratory: None Neuro: None Endocrine/Autoimmune: None GI: Chronic constipation : Benign prostate hypertrophy HEENT: None Psych: Depression, Anxiety Musculoskeletal: Other Derm: Eczema - Past Surgical History Past Surgical History: Yes General: Cholecystectomy HEENT: Detached retina repair, Tonsil/Adenoidectomy - Present Medications Home Medications: Ambulatory Orders Medication Instructions Recorded Confirmed [place]-3 Fatty Acids/Fish Oil [Fish 1 each PO DAILY 05/25/13 03/08/16 Oil 1,000 mg Capsule] Pravastatin Sodium [Pravachol] 40 mg PO DAILY 05/25/13 11/07/18 Tamsulosin [Flomax] 0.4 mg PO DAILY 05/25/13 11/07/18 LORazepam [Ativan] 0.5 mg PO HS PRN 05/15/19 05/15/19 Lactulose [Generlac] 10 gm PO QID PRN #200 ml 05/15/19 Escitalopram [Lexapro] 10 mg PO DAILY 05/16/19 05/16/19 Hydrocodone/Acetaminophen [[place] 1 each PO Q6H PRN #10 tablet 05/26/19 5-325 Tablet] Promethazine [Phenergan] 25 mg PO Q6H PRN #10 tab 05/26/19 risperiDONE [Risperidone] 2 mg PO QPM #15 tablet 05/26/19 - Allergies Allergies/Adverse Reactions: Allergies Allergy/AdvReac Type Severity Reaction Status Date / Time No Known Drug Allergies Allergy Verified 06/09/19 12:31 - Social History Does the pt smoke?: No Smoking Status: Never smoker Does the pt drink ETOH?: Yes Does the pt have substance abuse?: No - Immunizations Immunizations are current?: Yes - POLST Patient has POLST: No Results - Vitals Vitals: Vital Signs - 24 hr 06/09/19 12:31 Temperature 36.6 C Heart Rate 77 Respiratory 20 Rate Blood Pressure 145/84 H O2 Saturation 97 Oxygen O2 Source Room air
--- NOTE | 2019-06-09 13:15 | ED Physician Documentation ---
PD HPI HEADACHE - Stated complaint Stated Complaint: H/A ABDOMINAL PX - Chief complaint Chief Complaint: Abd Pain - History obtained from History obtained from: Patient - History of Present Illness Timing - onset: How many hours ago (5), Today Timing - onset during: Rest Timing - duration: Hours (5) Timing - details: Gradual onset, Still present Worst headache ever?: No: Worst headache ever? (similar to one recently, but is comparably bad to prior ones.) Location: Left Quality: Stabbing (like a knife being jabbed in head) Associated symptoms: Nausea. No: Fever, Stiff neck, Vomiting, Weakness, Numbness, Vision changes Worsened by: Light. No: Noise Contributing factors: No: Anticoagulated, Recent illness Similar symptoms before: Diagnosis (likely cluster headache, new onset recently.) Recently seen: Emergency Dept (had similar headache recently, with workup of CT and angios, labs. Dx possible cluster headache.) Review of Systems Constitutional: denies: Fever, Myalgias Eyes: denies: Loss of vision, Decreased vision Nose: denies: Rhinorrhea / runny nose, Congestion Throat: denies: Sore throat Respiratory: denies: Cough GI: reports: Nausea. denies: Abdominal Pain, Vomiting Skin: denies: Rash, Lesions Neurologic: denies: Focal weakness, Numbness, Altered mental status Psychiatric: reports: Depressed, Anxiety PD PAST MEDICAL HISTORY - Past Medical History Cardiovascular: High cholesterol Respiratory: None Neuro: None Endocrine/Autoimmune: None GI: Chronic constipation : Benign prostate hypertrophy HEENT: None Psych: Depression, Anxiety Musculoskeletal: Other Derm: Eczema - Past Surgical History Past Surgical History: Yes General: Cholecystectomy HEENT: Detached retina repair, Tonsil/Adenoidectomy - Present Medications Home Medications: Ambulatory Orders Medication Instructions Recorded Confirmed [place]-3 Fatty Acids/Fish Oil [Fish 1 each PO DAILY 05/25/13 03/08/16 Oil 1,000 mg Capsule] Pravastatin Sodium [Pravachol] 40 mg PO DAILY 05/25/13 11/07/18 Tamsulosin [Flomax] 0.4 mg PO DAILY 05/25/13 11/07/18 LORazepam [Ativan] 0.5 mg PO HS PRN 05/15/19 05/15/19 Lactulose [Generlac] 10 gm PO QID PRN #200 ml 05/15/19 Escitalopram [Lexapro] 10 mg PO DAILY 05/16/19 05/16/19 Hydrocodone/Acetaminophen [[place] 1 each PO Q6H PRN #10 tablet 05/26/19 5-325 Tablet] Promethazine [Phenergan] 25 mg PO Q6H PRN #10 tab 05/26/19 risperiDONE [Risperidone] 2 mg PO QPM #15 tablet 05/26/19 Hydrocodone/Acetaminophen 1 each PO Q6H PRN #10 tablet 06/09/19 [Hydrocodon-Acetaminophen 5-325] Ondansetron Odt [Zofran] 4 mg TL Q6H PRN #10 tablet 06/09/19 SUMAtriptan [Imitrex] 50 mg PO ONCE PRN #5 tablet 06/09/19 - Allergies Allergies/Adverse Reactions: Allergies Allergy/AdvReac Type Severity Reaction Status Date / Time No Known Drug Allergies Allergy Verified 06/09/19 12:31 - Social History Does the pt smoke?: No Smoking Status: Never smoker Does the pt drink ETOH?: Yes Does the pt have substance abuse?: No - Immunizations Immunizations are current?: Yes - POLST Patient has POLST: No PD ED PE NORMAL - Vitals Vital signs reviewed: Yes - General General: Alert and oriented X 3, Well developed/nourished, Other (appears in severe pain, holding left side of head) - HEENT HEENT: Atraumatic, PERRL, EOMI, Ears normal, Pharynx benign - Neck Neck: Supple, no meningeal sign, No adenopathy - Cardiac Cardiac: RRR, No murmur - Respiratory Respiratory: Clear bilaterally - Derm Derm: Normal color, Warm and dry, No rash - Extremities Extremities: Normal ROM s pain - Neuro Neuro: Alert and oriented X 3, field technical assistant 2-12 intact, No motor deficit, No sensory deficit, Normal speech, Other Eye Opening: Spontaneous Motor: Obeys Commands Verbal: Oriented GCS Score: 15 Results - Vitals Vitals: Vital Signs - 24 hr 06/09/19 06/09/19 06/09/19 12:31 13:40 14:13 Temperature 36.6 C Heart Rate 77 63 59 L Respiratory 20 18 18 Rate Blood Pressure 145/84 H 136/108 H 137/81 H O2 Saturation 97 98 98 Oxygen O2 Source Room air Oxygen Flow Rate 6 - Labs Labs: Laboratory Tests 06/09/19 06/09/19 06/09/19 13:25 13:25 13:25 WBC 6.9 RBC 5.53 Hgb 15.9 Hct 48.6 MCV 87.9 MCH 28.8 MCHC 32.7 RDW 13.5 Plt Count 256 MPV 9.3 Neut # (Auto) 4.6 Lymph # (Auto) 1.8 [place] # (Auto) 0.5 Eos # (Auto) 0.0 Baso # (Auto) 0.0 Absolute Nucleated RBC 0.00 Nucleated RBC % 0.0 ESR 1 Sodium 139 Potassium 4.1 Chloride 106 Carbon Dioxide 23 Anion Gap 10.0 BUN 18 Creatinine 0.8 Estimated GFR (MDRD) 96 Glucose 106 H Calcium 9.0 Total Bilirubin 0.9 AST 22 ALT 28 Alkaline Phosphatase 64 Total Protein 7.2 Albumin 4.2 Globulin 3.0 Albumin/Globulin Ratio 1.4 Lipase 31 PD MEDICAL DECISION MAKING - ED course Complexity details: reviewed old records (recent CT and angio with labs; I did not see need for repeat imaging. ), re-evaluated patient (considerably improved headache, almost all gone, with Rx geared toward migraine type headache. ), considered differential, d/w patient Departure - Departure Disposition: 01 Home, Self Care Clinical Impression: Cluster headache Qualifiers: Headache chronicity pattern: episodic headache Intractability: not intractable Qualified Code(s): G44.019 - Episodic cluster headache, not intractable Condition: Stable Record reviewed to determine appropriate education?: Yes Instructions: ED Headache Cluster Follow-Up: Khloe Spear DO [Primary Care Provider] - Prescriptions: Hydrocodone/Acetaminophen [Hydrocodon-Acetaminophen 5-325] 1 each PO Q6H PRN #10 tablet PRN Reason: pain Ondansetron Odt [Zofran] 4 mg TL Q6H PRN #10 tablet PRN Reason: Nausea / Vomiting SUMAtriptan [Imitrex] 50 mg PO ONCE PRN #5 tablet PRN Reason: Headache Comments: Continue usual medications. Stay well-hydrated. If you have another episode of headache like this, try ondansetron combined with the pain medicine and a sumatriptan which targets that migraine. See if that allows the headache to go away over 20 or 30 minutes. Your headache still sounds like a cluster headache which is a variation of a migraine. Discharge Date/Time: 06/09/19 14:40
[2019-06-09] MEDS ORDERED: SODIUM CHLORIDE 0.9% 1,000 ML IV ONE (13:18)
[2019-06-09] MEDS ORDERED: DEXAMETHASONE 10 MG/ML VIAL IVP STA (13:19)
[2019-06-09] MEDS ORDERED: KETOROLAC 30 MG/ML VIAL IVP STA (13:19)
[2019-06-09] MEDS ORDERED: LORazepam 2 MG/ML VIAL IVP STA (13:19)
[2019-06-09] MEDS ORDERED: HALOPERIDOL 5 MG/ML VIAL IVP ONE (13:19)
[2019-06-09 13:39] LABS: BASOPHILS % (AUTO) 0.4 %; EOSINOPHILS % (AUTO) 0.4 %; HGB - HEMOGLOBIN 15.9 g/dL (14.0-18.0); LYMPHOCYTES # (AUTO) 1.8 10^3/uL (1.5-3.5); LYMPHOCYTES % (AUTO) 25.8 %; MEAN CORPUSCULAR HEMOGLOBIN 28.8 pg (27.0-31.0); MEAN CORPUSCULAR HGB CONC 32.7 g/dL (32.0-36.0); MEAN CORPUSCULAR VOLUME 87.9 fL (80.0-94.0); MEAN PLATELET VOLUME 9.3 fL (7.4-11.4); MONOCYTES # (AUTO) 0.5 10^3/uL (0.0-1.0); NEUTROPHILS # (AUTO) 4.6 10^3/uL (1.5-6.6); PLT - PLATELET COUNT 256 10^3/uL (130-450); RED BLOOD COUNT 5.53 10^6/uL (4.70-6.10); RED CELL DISTRIBUTION WIDTH 13.5 % (12.0-15.0); WHITE BLOOD COUNT 6.9 x10^3/uL (4.8-10.8)
[2019-06-09 13:52] LABS: ALBUMIN 4.2 g/dL (3.2-5.5); ALBUMIN/GLOBULIN RATIO 1.4 (1.0-2.2); BILIRUBIN,TOTAL 0.9 mg/dL (0.2-1.0); CREATININE 0.8 mg/dL (0.6-1.2); TOTAL PROTEIN 7.2 g/dL (6.7-8.2)
[2019-06-09 14:14] VITALS: BP 137/81
== END 2019-06-09 14:40 | disposition home or self-care (01) ==
LOC: EDUNIT# → ED 12:21
DX: G44.019 Episodic cluster headache, not intractable (principal)
CPT/HCPCS: 36415; 80053; 83690; 85025; 85651; 96361; 96374; 99284; 99285; J2060

== ENCOUNTER 2019-06-11 16:53 | Outpatient (CLI) | payer MEDICARE, BC | END 2019-06-11 16:54 | disposition short-term general hospital (02) | LOC: EMS 16:53 | PROVIDERS: ATTEND Surgery | DX: R51 Headache (principal); R11.0 Nausea | CPT/HCPCS: A0425; A0427 ==

== ENCOUNTER 2019-07-05 07:00 | Outpatient (CLI) | payer MEDICARE, BC | END 2019-07-05 23:59 | disposition home or self-care (01) | LOC: LAB.WCP 07:00 | PROVIDERS: ATTEND Family Medicine | DX: R51 Headache (principal) | CPT/HCPCS: 36415; 85651; 86140 ==

== ENCOUNTER 2019-08-23 08:00 | Outpatient (CLI) | payer MEDICARE, BC | END 2019-08-23 23:59 | disposition home or self-care (01) | LOC: LAB.WCP 08:00 | PROVIDERS: ATTEND Family Medicine | DX: R51 Headache (principal) | CPT/HCPCS: 36415; 85651; 86140 ==

== ENCOUNTER 2019-09-03 15:13 | Emergency (ER) | payer MEDICARE, BC ==
--- NOTE | 2019-09-03 17:10 | ED Physician Documentation ---
PD HPI HEADACHE - Stated complaint Stated Complaint: BOUCHER/BACK PX - Chief complaint Chief Complaint: Neuro - History obtained from History obtained from: Patient - History of Present Illness Timing - onset: How many days ago (Has had a few days of worsened headache over baseline. He is actually had a headache fairly consistently most every day for the last several months. He is seeing a headache specialist and had been tried on Topamax for 6 or 7 weeks without any improvement and just started on nortriptyline a week ago but has not noticed much improvement as yet. He has had trials of Imitrex, Fioricet, and Compazine orally to try with the migraine headaches when they are worse than baseline. He has not really noticed any improvement with these and states the Imitrex actually made it feel worse. The butalbital was either neutral or slightly worse with headache when he took it. He is also had some right low back pain from a sudden stop in the car coming back from appointment. His knee hit the dashboard and he has had some low back pain after that. He did have x-rays in the office which were reportedly were normal. His headache was much worse in the last day.) Timing - onset during: Rest Timing - duration: Days Timing - details: Gradual onset, Waxing and waning Quality: Throbbing, Stabbing, Tightness Associated symptoms: No: Fever, Stiff neck, Nausea, Vomiting Improved by: Dark room. No: Meds (has tried imitrex, butalbital, tylenol headache for the headaches acutely - no response. Is now on nortryptilline by Neurologist the past week, without improvement yet, but only been less than a week.) Worsened by: Light, Noise Contributing factors: No: Anticoagulated, Hypertension, Recent illness, Trauma Similar symptoms before: No diagnosis Recently seen: Clinic Review of Systems Constitutional: denies: Fever, Chills, Myalgias Nose: denies: Congestion, Foreign Body Throat: denies: Oral lesions / sores Cardiac: denies: Chest pain / pressure Respiratory: denies: Dyspnea, Cough PD PAST MEDICAL HISTORY - Past Medical History Cardiovascular: High cholesterol Respiratory: None Neuro: None Endocrine/Autoimmune: None GI: Chronic constipation : Benign prostate hypertrophy HEENT: None Psych: Depression, Anxiety Musculoskeletal: Other Derm: Eczema - Past Surgical History Past Surgical History: Yes General: Cholecystectomy HEENT: Detached retina repair, Tonsil/Adenoidectomy - Present Medications Home Medications: Ambulatory Orders Medication Instructions Recorded Confirmed [place]-3 Fatty Acids/Fish Oil [Fish 1 each PO DAILY 05/25/13 03/08/16 Oil 1,000 mg Capsule] Pravastatin Sodium [Pravachol] 40 mg PO DAILY 05/25/13 11/07/18 Tamsulosin [Flomax] 0.4 mg PO DAILY 05/25/13 11/07/18 LORazepam [Ativan] 0.5 mg PO HS PRN 05/15/19 05/15/19 Lactulose [Generlac] 10 gm PO QID PRN #200 ml 05/15/19 Escitalopram [Lexapro] 10 mg PO DAILY 05/16/19 05/16/19 Hydrocodone/Acetaminophen [[place] 1 each PO Q6H PRN #10 tablet 05/26/19 5-325 Tablet] Promethazine [Phenergan] 25 mg PO Q6H PRN #10 tab 05/26/19 risperiDONE [Risperidone] 2 mg PO QPM #15 tablet 05/26/19 Hydrocodone/Acetaminophen 1 each PO Q6H PRN #10 tablet 06/09/19 [Hydrocodon-Acetaminophen 5-325] Ondansetron Odt [Zofran] 4 mg TL Q6H PRN #10 tablet 06/09/19 SUMAtriptan [Imitrex] 50 mg PO ONCE PRN #5 tablet 06/09/19 Hydrocodone/Acetaminophen 1 each PO TID PRN #18 tablet 09/03/19 [Hydrocodon-Acetaminophen 5-325] Metaxalone 400 mg PO BID PRN #20 tablet 09/03/19 dexAMETHasone [Decadron] 4 mg PO DAILY #5 tablet 09/03/19 - Allergies Allergies/Adverse Reactions: Allergies Allergy/AdvReac Type Severity Reaction Status Date / Time escitalopram Allergy Unknown Verified 09/03/19 15:29 - Social History Does the pt smoke?: No Smoking Status: Never smoker Does the pt drink ETOH?: Yes Does the pt have substance abuse?: No - Immunizations Immunizations are current?: Yes - POLST Patient has POLST: No PD ED PE NORMAL - Vitals Vital signs reviewed: Yes - General General: Alert and oriented X 3, No acute distress, Well developed/nourished - HEENT HEENT: Pharynx benign - Neck Neck: Supple, no meningeal sign, No adenopathy - Cardiac Cardiac: RRR, No murmur - Respiratory Respiratory: Clear bilaterally - Abdomen Abdomen: Normal bowel sounds, Soft, Non tender, Non distended - Back Back: No CVA TTP - Derm Derm: Normal color, Warm and dry Results - Vitals Vitals: Vital Signs - 24 hr 09/03/19 09/03/19 15:23 18:32 Temperature 37 C Heart Rate 80 71 Respiratory 17 169 H Rate Blood Pressure 152/90 H 139/71 H O2 Saturation 97 Oxygen O2 Source Room air PD MEDICAL DECISION MAKING - ED course Complexity details: reviewed results, considered differential, d/w patient, d/w family Departure - Departure Disposition: 01 Home, Self Care Clinical Impression: Anxiety, Acute low back pain due to trauma Migraine Qualifiers: Migraine type: without aura Status migrainosus presence: with status migrainosus Intractability: intractable Qualified Code(s): G43.011 - Migraine without aura, intractable, with status migrainosus Headache Qualifiers: Headache type: unspecified Headache chronicity pattern: chronic headache Intractability: intractable Qualified Code(s): R51 - Headache Condition: Stable Record reviewed to determine appropriate education?: Yes Instructions: ED Low Back Pain Injury, ED Cephalgia Unspecified Follow-Up: Khloe Spear DO [Primary Care Provider] - Prescriptions: dexAMETHasone [Decadron] 4 mg PO DAILY #5 tablet Hydrocodone/Acetaminophen [Hydrocodon-Acetaminophen 5-325] 1 each PO TID PRN #18 tablet PRN Reason: pain Metaxalone 400 mg PO BID PRN #20 tablet PRN Reason: Spasms Comments: Continue usual current medications. I would extend steroids longer to help with your back and headache. Decadron daily for 5 more days. Metaxalone muscle relaxant 2-3 times a day for spasms and stiffness. Add Tylenol 3 times a day for pains. Or hydrocodone if needed for worse pain. Follow-up with your primary care if not improving well into next week. Follow- up with the physical therapy and chiropractic. Return to the ER as needed. Discharge Date/Time: 09/03/19 19:09
[2019-09-03] MEDS ORDERED: SODIUM CHLORIDE 0.9% 1,000 ML IV ONE (17:34)
[2019-09-03] MEDS ORDERED: HALOPERIDOL 5 MG/ML VIAL IVP ONE (17:37)
[2019-09-03] MEDS ORDERED: KETOROLAC 30 MG/ML VIAL IVP STA (17:37)
[2019-09-03] MEDS ORDERED: DEXAMETHASONE 10 MG/ML VIAL IVP STA (17:37)
[2019-09-03] MEDS ORDERED: HYDROmorphone 1 MG/ML SYRINGE IVP STA ×2 (17:40→18:23)
[2019-09-03] MEDS ORDERED: diazePAM 5 MG TABLET PO STA (18:24)
[2019-09-03 18:33] VITALS: BP 139/71
--- NOTE | 2019-09-03 20:08 | ED Physician Documentation ---
ED Addendum - Addendum Addendum: 09/03/19 20:08 To call from pharmacy, the muscle relaxer that Dr. Prince prescribed is not covered by his insurance and I authorized to change to Soma 350 mg p.o. 3 times daily as needed muscle spasm #20 no refills.
== END 2019-09-03 19:09 | disposition home or self-care (01) ==
LOC: ED 15:13
DX: G43.011 Migraine without aura, intractable, with status migrainosus (principal); M54.5 Low back pain; X50.9XXA Other and unspecified overexertion or strenuous movements or postures, initial encounter; Y92.810 Car as the place of occurrence of the external cause; F41.9 Anxiety disorder, unspecified
CPT/HCPCS: 96374; 96375; 99284; 99285; A9270; J1170

== ENCOUNTER 2019-09-25 14:50 | Outpatient (CLI) | payer MEDICARE, BC | END 2019-09-25 14:51 | disposition EMS.NT | LOC: EMS 14:50 | PROVIDERS: ATTEND Surgery | DX: R51 Headache (principal) ==

== ENCOUNTER 2019-11-17 13:49 | Outpatient (CLI) | payer MEDICARE, BC ==
--- NOTE | 2019-11-17 16:51 | MRI Report ---
Reason: MIGRAINE W/O AURA Procedure Date: 11/17/2019 Accession Number: [id number] / [id number] Procedure: MRI - Brain W/O CPT Code: Final Report FULL RESULT: EXAM: MRI BRAIN WITHOUT CONTRAST EXAM DATE: 11/17/2019 02:58 PM. CLINICAL HISTORY: 69-year-old male. MIGRAINE W/O AURA. COMPARISON: HEAD W/O 05/15/2019 12:54 PM. TECHNIQUE: Multiplanar, multisequence T1-weighted and fluid-sensitive MR sequences of the brain were performed. Sequences optimized for routine evaluation. Other: None. IV Contrast: None. FINDINGS: Brain Volume: Mild diffuse cerebral volume loss with ex-vacuo dilatation of the ventricles and sulci. Parenchyma/Dura: No mass, acute infarct or hemorrhage. Scattered T2/FLAIR hyperintense periventricular, deep, and subcortical white matter lesions within cerebral hemispheres bilaterally. Ventricles/Cisterns: No hydrocephalus. No abnormal extra-axial fluid collection or hemorrhage. Orbits: Symmetric and unremarkable. Sella [place]: The pituitary gland, cavernous sinuses, suprasellar cistern and optic chiasm are unremarkable. IAC: Symmetric and unremarkable. Vasculature: Normal signal flow void is seen in the major arterial structures at the skull base. Sinuses: Mild mucosal thickening left maxillary sinus with a mucous retention cyst/polyp. Bones: No focal pathologic appearing marrow signal changes. Other: None. IMPRESSION: 1. No MRI evidence of acute intracranial abnormality. Specifically, no evidence of acute or subacute infarct, acute intracranial hemorrhage, mass, midline shift, or hydrocephalus. 2. Mild diffuse cerebral volume loss with ex-vacuo dilatation of the ventricles and sulci. 3. Scattered T2/FLAIR hyperintense periventricular, deep, and subcortical white matter lesions within cerebral hemispheres bilaterally. The lesions are nonspecific, and can be seen with the entire gamut of white matter conditions, including migraine headaches and as sequela of chronic microangiopathy. RADIA
== END 2019-11-17 13:50 | disposition home or self-care (01) ==
LOC: DI 13:49
PROVIDERS: ATTEND Family Medicine
DX: G43.011 Migraine without aura, intractable, with status migrainosus (principal); J32.9 Chronic sinusitis, unspecified
CPT/HCPCS: 70551

== ENCOUNTER 2019-12-10 10:45 | Outpatient (CLI) | payer MEDICARE, BC ==
--- NOTE | 2019-12-10 14:59 | XRAY Report ---
PROCEDURE: Cervical Spine Complete INDICATIONS: CERVICALGIA TECHNIQUE: 5 view(s) of the cervical spine were acquired. COMPARISON: None. FINDINGS: Bones: No fractures or dislocations to the C7-T1 level. Mild degenerative endplate changes are note d at C4-5, C5-6 and C6-7 levels. The lateral masses of C1 appear intact on the odontoid view. No dennise picious bony lesions. Soft tissues: No prevertebral soft tissue swelling. IMPRESSION: No cervical spine fracture or dislocation. Mild degenerative disc disease in mid to lowe r cervical spine. Reviewed by: Jesus Torres MD on 12/10/2019 2:58 PM PDT Approved by: Jesus Torres MD on 12/10/2019 2:58 PM PDT Station ID: [id number]
== END 2019-12-10 10:46 | disposition home or self-care (01) ==
LOC: DI 10:45
PROVIDERS: ATTEND Pain Medicine Pain Medicine
DX: M50.321 Other cervical disc degeneration at C4-C5 level (principal)
CPT/HCPCS: 72050

== ENCOUNTER 2020-01-04 15:29 | Outpatient (CLI) | payer MEDICARE, BC ==
--- NOTE | 2020-01-04 16:09 | SLEEP CARE CONSULTATION ---
Information from patient questionnaire entered by Jadyn Saldana. I have reviewed and concur with the information entered by Jadyn Saldana. This document represents the service I personally performed and the decisions made by me, Oni Amaro MD, [facility]. History of Present Illness Service Date and Time: 01/04/2020 1529 Reason for Visit: New patient Chief Complaint: reports: Insomnia, Unrefreshed sleep, Excessive daytime sleepiness, Fatigue, Other (Daily headaches, 6 months anxiety, burning sciatica) Duration of Symptoms: 6 months Usual bedtime: [id number] Time it takes to fall asleep: 15 minutes Number of times waking at night: 3 Reasons for waking at night: reports: Pain (headaches), Bathroom (2-3 times) Toss, Turn, or Twitch while sleeping: Yes Recalls having dreams: Yes (always dream, nightmarish at times) Usually gets out of bed at: 0800 Feels refreshed in the morning: No Morning headache: Yes (always) Sleepy or fatigued during the day: Yes Ever fallen asleep while driving: No Takes day naps: No (try but unable to even though overly tired) Dreams during day naps: No Prior sleep studies: No Additional HPI information: Mr. Scott presents with severe anxiety and headache which started 6 - 8 months ago. He headache is continuous. He complains also of insomnia which he attributes to his headache. He takes clonazepam at night. Because he sleeps alone, he does not know if he snores loudly or not. His late never mentioned anything about him quit breathing at night. Subjective Initial Douglas Sleepiness Scale score: 2 (restless, headaches, brain swirling, can't get back to sleep after 2-3 am sometimes) Past Medical History Past Medical History: reports: Anxiety, Other (Headaches: ongoing, sometimes round the clock, sometimes excruciating) Social History The patient's occupation is retired. Patient is / and lives in [place]. Have you smoked in the past 12 months: No Alcohol use: No Caffeine use: No Family History Family history of sleep disordered breathing: No Allergies and Home Medications Drug allergies reviewed: Yes (NKDA) Home medication list reviewed: Yes (Aimovig, clonazepam, pravachol, and Flomax) Review of Systems Weight loss over past 5 years: 35 Cardiovascular: denies: high blood pressure, palpitations, chest pain, irregular heart rate or pulse, leg or foot swelling, have to sleep sitting up, other Respiratory: denies: shortness of breath, wheeze, sputum production, chronic cough, other Gastrointestinal: reports: nausea (probably medication related), vomitting (probably medication related), diarrhea (probably medication related), other (constipation) Urinary: reports: frequency (prostate cancer - radiation seeds (2009)) Neurological: reports: headaches Psychiatric: reports: anxiety, depression (unknown) Ear/Nose/Throat: reports: dry mouth/throat Endocrine: reports: sluggishness Musculoskeletal: reports: back pain (sciatica) Immunologic: denies: sneezing, rash, itching, allergies to food or environment, other Physical Exam Vital signs obtained and entered by: Physical exam was not performed due to the COVID-19 pandemic. Height: 6 ft 2 in Impression and Plan IMPRESSION: 1. Possible Obstructive Sleep Apnea-Hypopnea Syndrome, as suggested by history of snoring, frequent awakenings during the night, unrefreshed sleep, cognitive impairment, persistent fatigue. Obesity is a common predisposing factor for obstructive sleep apnea-hypopnea syndrome. Because of severe anxiety, agoraphobia, and to minimize COVID exposure, a home sleep apnea test (HSAT) will be ordered. Plan: 1. Order a home sleep apnea test (HSAT) 2. Return in 1 to 2 weeks after the study to discuss results and initiate therapy. The patient may also choose to utilize the telemedicine. Visit Type: In Office Time Spent with Patient (minutes): 10 Provider Statement: I spent 100% of the Face to Face Visit with the patient with greater than 50% spent counseling the patient and coordination of care.
== END 2020-01-04 15:30 | disposition home or self-care (01) ==
LOC: SC 15:29
PROVIDERS: ATTEND Internal Medicine Pulmonary Disease
DX: G47.00 Insomnia, unspecified (principal); R53.83 Other fatigue; R06.83 Snoring; R51 Headache; E66.3 Overweight; F32.9 Major depressive disorder, single episode, unspecified
CPT/HCPCS: 99212

== ENCOUNTER 2020-02-24 11:27 | Outpatient (CLI) | payer MEDICARE, BC | END 2020-02-24 11:28 | disposition home or self-care (01) | LOC: DI.N 11:27 | PROVIDERS: ATTEND Family Medicine | DX: M25.551 Pain in right hip (principal) ==

== ENCOUNTER 2020-02-24 13:16 | Outpatient (CLI) | payer MEDICARE, BC ==
--- NOTE | 2020-02-24 17:39 | XRAY Report ---
PROCEDURE: Hip w/Pelvis 2-3V RT INDICATIONS: RIGHT HIP PAIN TECHNIQUE: AP pelvis with lateral view(s) of the bilateral hip(s). COMPARISON: None. FINDINGS: Bones: No fractures or dislocations. Pelvic ring appears intact. No suspicious bony lesions. Moder ate bilateral hip osteoarthritis with osseous hypertrophy and joint space narrowing. Soft tissues: T he visualized bowel gas pattern is normal. No suspicious soft tissue calcifications. Prostate radiot herapy seeds noted. IMPRESSION: Moderate bilateral hip osteoarthritis. Reviewed by: Nelly Quigley MD, PhD on 02/24/2020 5:38 PM PDT Approved by: Nelly Quigley MD, PhD on 02/24/2020 5:38 PM PDT Station ID: [id number]
== END 2020-02-24 13:17 | disposition home or self-care (01) ==
LOC: DI.N 13:16
PROVIDERS: ATTEND Family Medicine
DX: M16.0 Bilateral primary osteoarthritis of hip (principal)

== ENCOUNTER 2021-10-18 20:56 | Outpatient (CLI) | payer MEDICARE, BC ==
--- NOTE | 2021-10-18 23:04 | Ultrasound Report ---
PROCEDURE: Duplex Ext Veins Left INDICATIONS: ACUTE ONSET OF PAIN IN POSTERIOR LEFT HEEL W/DUSKINESS COOLNESS TECHNIQUE: Real-time imaging, as well as color and pulse Doppler interrogation, were performed of the lower extr emity deep veins from the inguinal ligament to the popliteal fossa. COMPARISON: CT abdomen and pelvis 05/15/2019. FINDINGS: The deep veins are normally compressible, and free of intraluminal thrombus. Color and pu lse Doppler demonstrate normal phasic intraluminal flow. There is normal augmentation response to di stal compression maneuver. Incidental small area of calcification adjacent to the left mid SFV. IMPRESSION: No left lower extremity DVT. Incidental small area of calcification adjacent to the left mid SFV. This could be due to prior chron ic thrombosis. Less likely calcified neoplasm. Left femur x-ray may be helpful for further evaluation. Reviewed by: Evans Benavidez MD on 10/18/2021 11:03 PM PDT Approved by: Evans Benavidez MD on 10/18/2021 11:03 PM PDT Station ID: [id number]
--- NOTE | 2021-10-18 23:07 | Ultrasound Report ---
PROCEDURE: Ext Limited Non Vascular INDICATIONS: ACHILLES TENDINITIS, LEFT TECHNIQUE: Real-time scanning was performed of the left Achilles tendon, with image documentation. COMPARISON: Same day left lower extremity duplex ultrasound. FINDINGS: The left Achilles tendon is thickened up to 1.9 cm. The Achilles tendon is heterogeneous with hyperem ia. No full-thickness tear or tendon retraction. Comparison was performed to the right Achilles tendon which measures 0.7 cm in thickness and has a un iform appearance. IMPRESSION: Abnormal thickening and heterogeneous appearance of the left Achilles tendon. This is most consistent with tendinitis and possible partial thickness tear. MRI may be helpful for further evaluation. Reviewed by: Evans Benavidez MD on 10/18/2021 11:06 PM PDT Approved by: Evans Benavidez MD on 10/18/2021 11:06 PM PDT Station ID: [id number]
== END 2021-10-18 20:57 | disposition home or self-care (01) ==
LOC: DI 20:56
PROVIDERS: ATTEND Family Medicine
DX: I73.9 Peripheral vascular disease, unspecified (principal); M76.62 Achilles tendinitis, left leg; M79.672 Pain in left foot